=== PATIENT | female | born 2000 | race Caucasian/White ===

== ENCOUNTER 2023-09-04 20:22 | Emergency (ER) | payer BC, SELFPAY ==
[2023-09-04 20:36] VITALS: BP 111/72; PULSE 81; RESP 16; TEMP 37.2; O2SAT 98; BMI 23.0
--- NOTE | 2023-09-04 20:46 | ED_ITS ---
HPI - Abdominal Pain General Time Seen by Provider: 20:46 Date Seen: 09/04/23 Chief Complaint: Abdominal Pain Stated Complaint: vomiting/diarrhea/backpain/abd pain Time Seen by Provider: 09/04/23 20:43 Source: patient, EMS, RN notes reviewed and old records reviewed Mode of arrival: ambulatory Limitations: no limitations History of Present Illness HPI narrative: This 23-year-old female is coming in with illness starting last week. She started with nonbloody watery diarrhea Monday of last week, had accompanying nausea. Vomiting did not ensue until . She has had epigastric pain, some back pain with this. Her primary pain is epigastric area. She did have a fever initially, took Tylenol once and has not had any subsequent fever. She was on antibiotics a few weeks ago for UTI, improved. She is not aware of any ill contacts, is had no travel. She went to the clinic today, was given Zofran. She states she is still felt reflux of bile despite trying Zofran at 2:00 p.m.. There has been no blood in her vomit or her stool. She did take some Tylenol at about 5:30 p.m. for her discomfort. Labs done in clinic include a normal comprehensive metabolic panel was sodium 140, potassium 4.3, chloride 106, bicarb 24, IN gap 10, glucose 91, calcium 9.7, BUN 10, creatinine 0.62, estimated GFR greater than 90. White blood count was normal at 5800, hemoglobin normal at 12.9, platelet count [id number]. Urinalysis showed some concentration with a specific gravity greater than 1.030 but there is no evidence of infection or significant hematuria or pyuria, no bacteria seen. Her liver panel was normal. She had a negative urine test. She was told to stay on clear liquids, start brat diet tomorrow. If her symptoms were not improving, they were going to order CT imaging in a few days. Patient presented today as she was still having issues. She has been tolerating water today, had some broth tonight which made her feel more nauseated. Related Data Home Medications ?Medication ?Instructions ?Recorded ?Confirmed cyclobenzaprine 10 mg tablet 5 - 10 mg PO Q8H PRN muscle spasm 04/03/23 04/03/23 desogestrel-e.estradiol 0.15 1 tab PO DAILY 04/03/23 09/04/23 mg-0.02 mg(21)/e.estrad 0.01 mg(5) tablet (Volnea (28)) escitalopram oxalate 10 mg tablet 10 mg PO DAILY 04/03/23 09/04/23 hydroxyzine HCl 10 mg tablet 10 - 20 mg PO QPM PRN anxiety 04/03/23 09/04/23 mupirocin 2 % topical ointment topical BID 04/03/23 04/03/23 nystatin 100,000 unit/mL oral 5 ml PO QID 04/03/23 04/03/23 suspension valacyclovir 1 gram tablet 1,000 mg PO DAILY 04/03/23 04/03/23 Allergies Allergy/AdvReac Type Severity Reaction Status Date / Time guanfacine Allergy Verified 04/03/23 09:32 Review of Systems Status of ROS Reports: 6 or more systems reviewed and unremarkable except as noted in History and below PFSH PFS Social History Smoking Status: Never smoker Do you use any of these nicotine containing products: None Second hand tobacco smoke exposure: No How often do you have a drink containing alcohol: never How often do you have six or more drinks on one occasion: Never AUDIT-C Alcohol total score: 0 Non-prescribed substance use: denies use service: No Exam Const: Vital Signs, click to edit/add: Vital Signs - 24 hr 09/04/23 20:36 09/04/23 22:21 Temperature 99.0 F 97.4 F L Pulse Rate [Pulse Oximeter] 81 70 Respiratory Rate 16 16 Blood Pressure [Ri ght Upper Arm] 111/72 118/72 Pulse Oximetry 98 98 Oxygen Delivery Me thod Room Air Room Air Patient is alert, interactive, no apparent distress. Appears pale but no jaundice or rash noted, looks like she doesn't feel the best. Sclera clear, conjugate gaze. Lips normal not dry or cracked but oropharynx appears dry. It speak in complete sentences. Neck is supple, no adenopathy. Lungs are clear, good air entry, wheezing or crackles. CV regular rate and rhythm, no murmur, normal S1-S2, no S3-S4. Abdomen is soft, nondistended, mild epigastric tenderness without rebound or guarding, no organomegaly. Bowel sounds are present, no concerning character. No lower extremity edema. Patient is ambulatory into the ED of her own accord. Documenting provider has reviewed patient's vital signs: yes Course Course ED Course: Patient has been sick now for 5 days with GI symptomatology. Reviewed with her that this is likely infectious in nature, presumably viral with her normal labs today. She is feeling dry, will give her a L of IV fluids and 4 mg IV Zofran. We will also cover for gastritis type symptoms from her presumed GI gastroenteritis with 40 mg IV Protonix. Patient seems to be anticipating CT imaging, do think that she certainly could wait but given her duration of symptoms, will acquiesce in order CT abdomen pelvis with IV contrast. If colitis is seen on CT imaging, would do stool studies including C difficile given her recent antibiotic use. Will obtain a lactate, C-reactive protein and lipase but am not going to repeat her labs that were just done earlier today. Reevaluation(s) Time of Reevaluation #1: 22:48 Reevaluation #1: Reviewed CT imaging with patient. Her urinalysis in clinic earlier today does not suggest UTI. She is not symptomatic any longer. Otherwise, there is no acute pathology on her CT imaging. We reviewed her inflammatory markers and labs done here were normal. She very likely has a viral gastroenteritis. H opefully she is on the tail end of this and will start improve. Will plan to discharge to home with further clinic follow-up if she is not improving over the next few days. Of note, she did complain of a headache just prior to discharge. She was given Toradol 15 mg IV. Vital Signs Vital signs: Initial Vital Signs Temperature 99.0 F 09/04/23 20:36 Temperature Source Temporal Artery Scan 09/04/23 20:36 Pulse Rate 81 09/04/23 20:36 Respiratory Rate 16 09/04/23 20:36 Blood Pressure 111/72 09/04/23 20:36 Blood Pressure Mean 85 09/04/23 20:36 Blood Pressure Position Sitting 09/04/23 20:36 Pulse Oximetry 98 09/04/23 20:36 Oxygen Delivery Method Room Air 09/04/23 20:36 Vital Signs Temperature 99.0 F 09/04/23 20:36 Pulse Rate 81 09/04/23 20:36 Respiratory Rate 16 09/04/23 20:36 Blood Pressure 111/72 09/04/23 20:36 Pulse Oximetry 98 09/04/23 20:36 Oxygen Delivery Method Room Air 09/04/23 20:36 Temperature 97.4 F L 09/04/23 22:21 Pulse Rate 70 09/04/23 22:21 Respiratory Rate 16 09/04/23 22:21 Blood Pressure 118/72 09/04/23 22:21 Pulse Oximetry 98 09/04/23 22:21 Oxygen Delivery Method Room Air 09/04/23 22:21 Medications Administered Medications: Generic Name Dose Route Start Last Admin Trade Name Freq PRN Reason Stop Dose Admin Sodium Chloride 1,000 mls @ 1,000 mls/hr 09/04/23 20:48 09/04/23 22:13 0.9 % Sodium Chloride 1000 Ml IV 09/04/23 21:47 Infused .Q1H TIANNA Infusion Ondansetron HCl 4 mg 09/04/23 20:46 09/04/23 21:11 Ondansetron 2 Mg/Ml Inj IVP 09/04/23 20:47 4 mg ONCE ONE Administration Pantoprazole Sodium 40 mg 09/04/23 20:59 09/04/23 21:12 Pantoprazole Sodium 40 Mg Inj IVP 09/04/23 21:00 40 mg ONCE ONE Administration MDM - Abdominal Pain Lab Data Attestation: I reviewed the patient's lab results. Labs: Lab Results 09/04/23 Range/Units 21:11 Lactate 0.7 (0.5-1.9) mmol/L C-Reactive Protein 0.9 (0.5-1.0) mg/dL Lipase 119 (23-300) U/L Imaging Data CT scan - abdomen: Attestation: I have reviewed the pertinent imaging results. Radiologist's impression: Patient: ROLAND THOMAS Facility:?[facility] Patient ID:?[id number] Site Patient ID:?[id number]. Site :?[id number] Study:?CT-Abdomen/Pelvis W/ISOVUE 370 62CC-09/04/2023 9:51:40 PM Ordering Physician:Jack Landin Final Report: INDICATION: Abdominal pain, nausea/vomiting/diarrhea. TECHNIQUE: CT of the abdomen and pelvis acquired with 62 cc Isovue 370 IV contrast. Coronal and sagittal reconstructions. COMPARISON: None. FINDINGS: The liver, gallbladder, spleen, pancreas, and adrenal glands are negative. No biliary dilation. Hepatic and portal veins are patent. Symmetric enhancement of the kidneys. No hydronephrosis or ureteral dilation. No obstructing urinary calculi identified. Circumferential bladder wall thickening. Uterus is unremarkable. Nonspecific coarse calcification in the right adnexa. No small bowel dilation. Moderate amount of formed stool throughout the colon. No signs of bowel inflammation. Negative appendix. No intraperitoneal free air. No lymphadenopathy. Trace free fluid in the pelvis is likely physiologic. The lung bases are clear. The bones are unremarkable. IMPRESSION: 1. Bladder wall thickening. Correlate with urinalysis. 2. No other acute findings in the abdomen or pelvis. No signs of bowel inflammation or obstruction. Please note that all CT scans at this facility use dose modulation, iterative reconstruction, and/or weight-based dosing when appropriate to reduce radiation dose to as low as reasonably achievable. Dictated by Cat Muir MD @ 09/04/2023 10:46:21 PM (Electronic Signature) Discharge Plan Discharge Clinical Impression: Gastroenteritis Patient Disposition: Home, Self-Care Condition: Stable Instructions: Gastroenteritis (ED), Nutrition Tips for Relief of Diarrhea (ED) Additional Instructions: Continue with Zofran as needed for nausea and vomiting as it was prescribed earlier today. Drink small frequent sips of clear liquids, this will help prevent further nausea and vomiting. As you feel better, can advance her diet, review handout for nutrition tips for relief of diarrhea. If your symptoms are not improving in the next 2-3 days, recheck in clinic, may need to get stool studies done. If you develop increasing abdominal pain, fever, blood in your stool or vomit, do recommend re-evaluation in the ER. Activity Level: Activity as Tolerated Prescriptions: No Action escitalopram oxalate 10 mg tablet 10 mg PO DAILY nystatin 100,000 unit/mL suspension 5 ml PO QID desog-e.estradiol/e.estradiol [Volnea (28)] 0.15-0.02 mgx21 /0.01 mg x 5 tablet 1 tab PO DAILY mupirocin 2 % ointment topical BID hydroxyzine HCl 10 mg tablet 10 - 20 mg PO QPM PRN (Reason: anxiety) valacyclovir 1 gram tablet 1,000 mg PO DAILY cyclobenzaprine 10 mg tablet 5 - 10 mg PO Q8H PRN (Reason: muscle spasm) Follow Up/Referrals: Miller Mary MS, LAT, ATC [Primary Care Provider] - Stand Alone Forms: [employer] Info Instructions
--- NOTE | 2023-09-04 20:47 | CRLHL7_ITS ---
For Patients: As a result of the Century Cures Act, medical imaging exams and procedure reports are released immediately into your electronic medical record. You may view this report before your referring provider. If you have questions, please contact your health care provider. INDICATION: Abdominal pain, nausea/vomiting/diarrhea. TECHNIQUE: CT of the abdomen and pelvis acquired with 62 cc Isovue 370 IV contrast. Coronal and sagittal reconstructions. COMPARISON: None. FINDINGS: The liver, gallbladder, spleen, pancreas, and adrenal glands are negative. No biliary dilation. Hepatic and portal veins are patent. Symmetric enhancement of the kidneys. No hydronephrosis or ureteral dilation. No obstructing urinary calculi identified. Circumferential bladder wall thickening. Uterus is unremarkable. Nonspecific coarse calcification in the right adnexa. No small bowel dilation. Moderate amount of formed stool throughout the colon. No signs of bowel inflammation. Negative appendix. No intraperitoneal free air. No lymphadenopathy. Trace free fluid in the pelvis is likely physiologic. The lung bases are clear. The bones are unremarkable. IMPRESSION: 1. Bladder wall thickening. Correlate with urinalysis. 2. No other acute findings in the abdomen or pelvis. No signs of bowel inflammation or obstruction. Please note that all CT scans at this facility use dose modulation, iterative reconstruction, and/or weight-based dosing when appropriate to reduce radiation dose to as low as reasonably achievable. Dictated by Cat Muir MD @ 09/04/2023 10:46:21 PM (Electronically Signed)
[2023-09-04] MEDS: 0.9 % SODIUM CHLORIDE 1000 ml 1,000 ML IV (21:00)
[2023-09-04] MEDS: ONDANSETRON 2 MG/ML inj 4 MG IVP (21:11)
[2023-09-04] MEDS: PANTOPRAZOLE SODIUM 40 MG INJ IVP (21:12)
[2023-09-04 21:13] LABS: Lactate* 0.7 mmol/L (0.5-1.9)
[2023-09-04 21:44] LABS: Lipase* 119 U/L (23-300)
[2023-09-04 21:48] LABS: C Reactive Protein* 0.9 mg/dL (0.5-1.0)
[2023-09-04 22:21] VITALS: BP 118/72; PULSE 70; RESP 16; TEMP 36.3; O2SAT 98
--- NOTE | 2023-09-04 22:21 | PC.NURSE ---
Pt resting, c/o headache. GI symptoms have improved.
--- NOTE | 2023-09-04 22:52 | PC.NURSE ---
Pt put call light on, states she has a headache, rates it 9/10 and requesting medication for the headache.
[2023-09-04] MEDS: KETOROLAC 15 MG/ML inj IVP (22:59)
== END 2023-09-04 23:05 | disposition home or self-care (01) ==
PROVIDERS: Emergency Provider Family Medicine
DX: K52.9 Noninfective gastroenteritis and colitis, unspecified (principal)
CPT/HCPCS: 36415; 74177; 83605; 83690; 86140; 96374; 96375; 99284; C9113; J1885; J2405; J7030; Q9967

== ENCOUNTER 2024-10-22 21:23 | Emergency (ER) | payer BC, SELFPAY ==
--- OUTSIDE RECORDS SUMMARY | 2024-10-15 12:30 | XMS_ITS | Encounter Summary ---
Author Organization [facility] Address [address] [place] [address] Care Team Providers Care Vp Securities Name Role Phone None Reported, Pcp Primary Care Provider Unavail able Reason for Visit * Reason Comments Nurse Visit NOB ED/INTAKE * Appointment Request (Routine) - Closed Specialty Diagnoses / Procedures Referred By Britany bennett Referred To Contact Obstetrics and Gynecology Diagnoses Examination Test With Positive Result (HCC) Referral ID Status Reason Start Date Expiration Date Visits Re quested Visits Authorized [id number] Closed 09/30/2024 12/31/2025 1 1 Encounter Details Date Type Department Care Team (Late st Contact Info) Description 10/15/2024 12:30 PM CDT Initial Department of Obstetrics and Gynecology in [place], [place] [address] [phone] Jordyn López RRosa Elena [address] [phone] [place]: [id number] Discharge Disposition: Home or Self Care Social History Tobacco Use Types Packs/Day Years Used Date Smoking Tobacco: Former Cigarettes 0.3 3.3 0 03/20/2016 - 03/20/2019 Cigars Smokeless Tobacco: Never Alcohol Use Standard Drinks/Week Comments Not Currently 0 (1 standard drink = 0.6 oz pure alcohol) Socail drinker 1 here and there every few months [facility] Utilities Answer Date Recorded In the past 12 months has th e electric, gas, oil, or water Orderlord threatened to shut off services in your home? Yes 03/28/2024 Humiliation, Afraid, Rape, and Kick questionnair e Answer Date Recorded Within the last year, have y ou been afraid of your partner or ex-partner? No 09/12/2022 Within the last year, have y ou been humiliated or emotionally abused in other ways by your partner or ex-partner? No Within the last year, have y ou been kicked, hit, slapped, or otherwise physically hurt by your partner or ex-partner? No 09/12/2022 Within the last year, have y ou been raped or forced to have any kind of sexual activity by your partner or ex-partner? No 09/12/2022 Hunger Vital Sign Answer Date Recorded Within the past 12 months, y ou worried that your food would run out before you got the money to buy more. Sometimes true Within the past 12 months, t he food you bought just didn't last and you didn't have money to get more. Never true 11/2024 PRAPARE - Transportation Answer Date Re corded In the past 12 months, has l ack of transportation kept you from medical appointments or from getting medications? No 11/2024 In the past 12 months, has l ack of transportation kept you from meetings, work, or from getting things needed for daily living? No 03/28/2024 Depression Answer Date Recor ded PHQ-9 Total Score (max 27) 9 10/14 Housing Stability Answer Date Recorded What is your living situation today? I have a [facility] place to live 03/28/2024 Education Answer Date Recorded What is the highest level of school you have completed or the highest degree you have received? 12th grade 02/28/2019 Estimated Date of Delivery Comme nts Yes 06/03/2025 Based on last me nstrual period of 08/27/2024 (Exact Date) Sex and Gender Information Value Date Recorded Sex Assigned at Female 03/31/2023 3:20 PM CHILD SUPPORT INVESTIGATOR Legal Sex Female 8:08 AM CHILD SUPPORT INVESTIGATOR Gender Identity Female 03/31/2023 3:20 PM CHILD SUPPORT INVESTIGATOR Sexual Orientation Straight 03/31/2023 3: 20 PM CHILD SUPPORT INVESTIGATOR documented as of this encounter Progress Notes * Jordyn López R.N. - 10/15/2024 12:30 PM CDT SUBJECTIVE Consult conducted via real-time audio/video technology by Jordyn López R.N. in [facility] [place] to the patient in Patient's Home CHIEF COMPLAINT / REASON FOR VISIT Dionna Madera is a 24 y.o. . Patient's last menstrual period was 08/27/2024 (exact date). Her Estimated Date of Delivery: 06/03/25 determined by LMP. Gestational age is 7w0d. Relationship with FOB: significant other, living together. Patient plans to breastfeed. Had been seen previously for sharp abdominal discomfort. States that type of discomfort has resolved, continues with occasional menstrual like cramp discomfort. H/O anxiety/depression-stopped all meds in March, continues with weekly therapy. State doing well emotionally. HISTORY OF PRESENT CONDITION OB History Para Term AB Living 3 1 1 0 1 1 SAB IAB Ectopic Molar Multiple Live Births 0 1 0 0 1 # Outcome Date GA Lbr Mahendra/2nd Weight Sex Type Anes PTL Lv 3 Current 2 IAB 2022 IAB IAB 1 Term 07/19/20 39w5d 2.778 kg F Vag-Spont EPI N ZARA Comments: shock with nitrous oxide Obstetric Comments OB Stratification:Green Genetic Screen: reviewed [place] Score: PHQ-9:9 ERON-7:5 Medical History[1] Surgical History[2] Family History[3] Social History[4] Allergies Allergen Reactions Dextromethorphan-Guaifenesin Other (see comments) Fever and vomiting. Pseudoephedrine-Guaifenesin Other (see comments) Other reaction(s): Fever, Vomiting Medications the Patient Reported Taking vits62/FA/om3/dha/epa ( GUMMY ORAL) (Taking) OBJECTIVE VITAL SIGNS ASSESSMENT / PLAN The following were reviewed with patient: Initial new OB labs,anticipated course of care, optional labs, seat belt use, dental care, exercise, caffeine use, sexual activity, toxoplasmosis precautions(if indicated), avoidance of hot tubs/saunas, WIC/PHN US policy, safe over the counter medications, care cost estimate/insurance, common symptoms, mercury and listeria precautions, and , topics of when to notify care team(fever, excessive nausea/vomiting, pain, bleeding, urinary symptoms, headaches).Encouraged good communication with care team regarding emotinal status. Encourage to call with questions or concerns. Jordyn López R.N. 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 PELVIC LAPAROSCOPY 2011 THERAPEUTIC 03/26/22 TONSILLECTOMY 2005 [3] Family History Problem Relation Name Age of Onset Bleeding Disorder Mother Yamilex Endometriosis Mother Yamilex Hemochromatosis Mother Yamilex Migraines Mother Yamilex Asthma Father alejandra buus Endometriosis Maternal Grandmother Regla Clotting disorder Maternal Grandmother Regla Bleeding Disorder Maternal Grandmother Regla Alcohol abuse Maternal Grandfather I dont know his name Drug abuse Maternal Grandfather I dont know his name My mothers father raped my grandmother. My mom did a dna test and got in contact with his family. They all said he had a alcohol and drug problem. He in [facility]. ADD Paternal Grandmother Shannon Hypertension Paternal Grandfather gudelia balaji Coronary artery disease Paternal Grandfather gudelia balaji Sleep apnea Paternal Grandfather gudelia balaji Bleeding Disorder Paternal Grandfather gudelia balaji Breast cancer Maternal Great Grandmother Ovarian cancer Neg Hx [4] Social History Socioeconomic History Marital status: Number of children: 1 Highest education level: 12th grade Tobacco Use Smoking status: Former Current packs/day: 0.00 Average packs/day: 0.3 packs/day for 3.3 years (0.8 ttl pk-yrs) Types: Cigarettes, Cigars Start date: 03/20/2016 Quit date: 03/20/2019 Years since quittin.5 Smokeless tobacco: Never Vaping Use Vaping status: former use Substance and Sexual Activity Alcohol use: Not Currently Comment: Socail drinker 1 here and there every few months Drug use: Not Currently Types: Marijuana Comment: Since May havent smoked Sexual activity: Yes Partners: Male control/protection: None Social Drivers of Health Food Insecurity: Food Insecurity Present (03/28/2024) Hunger Vital Sign Worried About Running Out of Food in the Last Year: Sometimes true Ran Out of Food in the Last Year: Never true Transportation Needs: No Transportation Needs (03/28/2024) PRAPARE - Transportation Lack of Transportation (Medical): No Lack of Transportation (Non-Medical): No Intimate Partner Violence: Not At Risk (09/12/2022) Humiliation, Afraid, Rape, and Kick questionnaire Fear of Current or Ex-Partner: No Emotionally Abused: No Physically Abused: No Sexually Abused: No Housing Stability: Low Risk (03/28/2024) Housing Stability Housing: Living Situation: I have a steady place to live documented in this encounter Plan of Treatment Scheduled Orders Name Type Priority Associated Diagnoses Orde r Schedule Chlamydia / Gonorrhoeae Amplified RNA Microbiology Routine Encounter For Supervision Of Other Normal Unspecified Trimester (HCC) Expected: 10/25/2024, Expires: 01/23/2025 documented as of this encounter Visit Diagnoses Diagnosis Encounter For Supervision Of Other Normal Unspecified Trimester (HCC)- Primary documented in this encounter Additional Health Concerns Assessment Noted Time PHQ-9 Depression Total Score: 9 10/15/19 10:01 AM CDT documented as of this encounter Care Teams Vp Securities Relationship Specialty Start Date End Date None Reported, Pcp PCP - General Family Medicine 08/08/24 documented as of this encounter
--- OUTSIDE RECORDS SUMMARY | 2024-10-22 21:26 | XMS_ITS | Clinical Summary ---
Author Organization [facility] Address [address] [place] [address] Care Team Providers Care Infantry Indirect Fire Crewmember Name Role Phone None Reported, Pcp Primary Care Provider Unavail able Source Comments Patient records contain information from all sites at [facility]. For routine questions regarding patient records, call [phone] during business hours, M-F 8:00 AM - 5:00 PM Central Time. Record requests for emergency care only can be directed to [phone] at any time.[facility] Allergies Active Allergy Reactions Criticality Noted Date Comments Dextromethorphan-Gua ifenesin Other (see comments) Low 04/10/2012 Fever and vomiting. Pseudoephedrine-Guai fenesin Other (see comments) Low 03/28/2013 Other reaction(s): Fever, Vomiting Medications * This document contains information received from the source organization and may not represent a complete record from that organization. escitalopram (LEXAPRO) 10 mg tablet 1 tablet (10mg) by mouth once daily at bedtime. Appointment needed for additional refills. 4 Active hydrOXYzine (ATARAX) 10 mg tablet Take 10-20 mg by mouth at bedtime as needed. 4 Active albuterol 90 mcg/actuation inhaler Inhale 2 puffs every 4 (four) hours as needed. 4 Active amitriptyline (ElaviL) 10 mg tablet Take 1 tablet by mouth at bedtime. 4 Active benzonatate (Tessalon Perles) 100 mg capsule Take 100 mg by mouth 3 (three) times a day as needed for cough. Active mupirocin (Bactroban) 2 % ointment as needed. 4 Active escitalopram (Lexapro) 5 mg tablet Take 5 mg by mouth daily. 4 Active beclomethasone (Qvar RediHaler) 80 mcg/actuation inhaler Inhale 1 puff 2 (two) times a day. Rinse mouth with water after use to reduce aftertaste and incidence of candidiasis. Do not swallow. 10.6 g 11 5 Active Additional Information Patient not taking.Reported on 10/15/2024 desogestreL-ethin yl estradioL (Enskyce) 0.15-0.03 mg per tabletIndications :Endometriosis,Ma nagement Contraceptive Take 1 tablet by mouth once daily 84 tablet 4 5 Active Additional Information Patient not taking.Reported on 10/15/2024 SUMAtriptan (Imitrex) 100 mg tablet Take 100 mg by mouth as needed. Active valACYclovir (Valtrex) 500 mg tablet Take 500 mg by mouth 2 (two) times a day. Active valACYclovir (Valtrex) 1000 mg tablet Take 1,000 mg by mouth as needed. Active valACYclovir (Valtrex) 500 mg tabletIndications :Herpesviral Infection Unspecified Take 1 tablet (500 mg total) by mouth daily. 90 tablet 3 5 026 Active Additional Information Patient not taking.Reported on 10/15/2024 vits62/FA/om3/dha /epa ( GUMMY ORAL) Take 2 gummies by mouth daily. Active Active Problems Problem Noted Date Diagnosed Date Lesion Skin 04/29/2024 Depression Major Recurrent Moderate 09/29/2023 Anxiety Generalized Disorder 10/26/2022 Management Contraceptive 08/12/2022 Overview (04/07/2023): Experiencing breakthrough bleeding with her current control pill. We will adjust her pill and increase the estrogen content. She will continue to allow a withdrawal bleed. She should follow up in 3-4 months if abnormal bleeding has not corrected. 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 Continue to follow-up with ultrasound during . Endometriosis 07/26/2012 Overview (04/07/2023): Utilizing the control pill for management. Asthma Mild Intermittent 05/14/2010 Estimated Date of Delivery Comme nts Yes 06/03/2025 Based on last me nstrual period of 08/27/2024 (Exact Date) Resolved Problems Problem Noted Date Diagnosed Date Resolved Date Hyperemesis Gravidarum Mild 05/12/2020 04/07/2023 Asthma 01/06/2020 08/12/2022 Examination Normal First Second Trimester 01/06/2020 08/12/2022 Need Vaccine Immunization Varicella 12/31/2019 08/12/2022 Overview (12/31/2019): Personal History Of Infectio us And Parasitic Disease (COVID-19) 12/04/2019 08/12/2022 Endometriosis Personal History 04/01/2019 08/12/2022 Other Symptoms And Signs Inv olving The Musculoskeletal System 06/29/2014 08/12/2022 Raised Antibody Titer 05/30/20142022 Overview (04/27/2020): No related clinical signs/symptoms of rheumatologic disease Pain Knee Right 04/09/2014 08/12/2022 Myalgia 04/09/2014 08/12/2022 Encounter Initial Therapy Im plantable Subdermal Contraceptive 07/26/2012 08/12/2022 Overview (04/27/2020): Remove in 3 years from insertion Dysmenorrhea 05/14/2010 08/12/2022 Myopia Right 12/27/2007 08/12/2022 Encounters Date Type Department Care Team Description 10/15/2024 12:30 PM CDT Initial Department of Obstetrics and Gynecology in [place], [place] [address] [place] [address] Jordyn López R.N. GA: [id number] Discharge Disposition: Home or Self Care 09/16/2024 Refill Department of Obstetrics and Gynecology in [place], [place] [address] [place] [address] Reshma Puente APRN, C.N.P. Med Refill from Last 3 Months Immunizations Immunization Administration Dates Next Due 9vHPV 11/24/2016,09/14/2015,07/13/2015 DTaP (Infanrix, Tripedia) 2000,2000, 2000 DTaP / Hep B / IPV (Pediarix) 10/17/2005 HPV, Unspecified 09/14/2015,07/13/2015 Hib-HepB 2000,2000 IPV 2000,2000,2000 Influenza, Unspecified 02/04/2020(Deferred: Angie ent decision) MCV4 (Menactra)(Discontinued) 02/20/2018, 013 MCV4 (Menveo) 11/12/2012 MMR 12/21/2005,10/17/2005 PCV7 (discontinued) 2000,2000,2000 Tdap 03/29/2024,11/12/2012 SHAYLA 11/12/2012,10/17/2005 Family History Medical History Relation Name Comments Asthma Father alejandra madera Alcohol abuse Maternal Grandfather I dont know his name Drug abuse Maternal Grandfather I dont know his name My mothers father raped my grandmother. My mom did a dna test and got in contact with his family. They all said he had a alcohol and drug problem. He in assisted. Bleeding Disorder Maternal Grandmother Regla Clotting disorder Maternal Grandmother Regla Endometriosis Maternal Grandmother Regla Breast cancer Maternal Great Grandmother Bleeding Disorder Mother Yamilex Endometriosis Mother Yamilex Hemochromatosis Mother Yamilex Migraines Mother Yamilex Bleeding Disorder Paternal Grandfather gudelia balaji Coronary artery disease Paternal Grandfather gudelia jerrica baig Hypertension Paternal Grandfather gudelia balaji Sleep apnea Paternal Grandfather gudelia balaji ADD Paternal Grandmother Shannon Ovarian cancer Neg Hx Relation Name Status Comments Father alejandra madera Maternal Grandfather I dont know his name Alive Maternal Grandmother Regla Alive Maternal Great Grandmother Mother Yamilex Alive Paternal Grandfather gudelia madera Paternal Grandmother Shannon Alive Social History Tobacco Use Types Packs/Day Years Used Date Smoking Tobacco: Former Cigarettes 0.3 3.3 0 03/20/2016 - 03/20/2019 Cigars Smokeless Tobacco: Never Alcohol Use Standard Drinks/Week Comments Not Currently 0 (1 standard drink = 0.6 oz pure alcohol) Socail drinker 1 here and there every few months [facility] Utilities Answer Date Recorded In the past 12 months has e [employer], gas, oil, or water Deliv threatened to shut off services in your [...] your living situation today? I [place] a [facility] place to live 03/28/2024 Education Answer Date Recorded What is the highest level of school you have completed or the highest degree you have received? 12th grade 02/28/2019 Estimated Date of Delivery Comme nts Yes 06/03/2025 Based on last me nstrual period of 08/27/2024 (Exact Date) Sex and Gender Information Value Date Recorded Sex Assigned at Female 03/31/2023 3:20 PM BRIM MOLDER Legal Sex Female 8:08 AM BRIM MOLDER Gender Identity Female 03/31/2023 3:20 PM BRIM MOLDER Sexual Orientation Straight 03/31/2023 3: 20 PM BRIM MOLDER Last Filed Vital Signs Vital Sign Reading Time Taken Comments Blood Pressure 101/65 03/29/2024 9:24 AM BRIM MOLDER average of 3 Pulse 79 03/29/2024 9:24 AM BRIM MOLDER Temperature 36 C (96.8 F) 03/29/2024 9:24 AM BRIM MOLDER Respiratory Rate 12 03/29/2024 9:24 AM BRIM MOLDER Oxygen Saturation 99% 12/06/2019 10: 00 AM CDT Inhaled Oxygen Concentration - - Weight 56.9 kg (125 lb 7.1 oz) 03/29/19 25 9:24 AM BRIM MOLDER Height 156 cm (5' 1.42) 03/29/2024 9:2 4 AM BRIM MOLDER Body Mass Index 23.38 03/29/2024 9:24 AM BRIM MOLDER Plan of Treatment Health Maintenance Due Date Last Done Comments Hepatitis C Screening 2000 Pneumococcal vaccine (0-49 y ears) (1 of 2 - PCV) 01/18/2019 2000, 2000, 2000 COVID-19 Vaccine ( - 2023-2 5 season) 2023 Chlamydia and Gonorrhea Screening 04/18/2024 024, 12/30/2019 Asthma Control Test Questionnaire 05/09/2024 025 Asthma Management/Exacerbati on Questionnaire (AMQ/AEQ) 05/29/2024 05/30/2023 Influenza Vaccine (#1) 2024 Depression Monitoring (PHQ-9) 02/14/2025 10/14/2024 Tdap vaccine - (27- 36 weeks) (1 - Tdap) 03/04/2025 03/29/2024, 11/12/2012, 2000, Additional history exists Asthma Action Plan 03/29/2025 03/29/2024 RSV vaccine - (32-3 6 weeks) or 60+ years (1 - Risk 1-dose series) 04/08/2025 Cervical/Vaginal Cancer Screening 06/29/2025 06/29/2022 (Performed elsewhere) DTaP,Tdap,and Td Vaccines (7 - Td or Tdap) 03/29/2034 03/29/2024, 11/12/2012, 10/17/2005, Additional history exists Hepatitis B Vaccines Completed 10/17/2005, 2000, 2000 IPV Vaccines Completed 10/17/2005, 09/18, 2000, Additional history exists Varicella Vaccines Completed 11/12/2012, 10/17/2005 HPV Vaccines Completed 11/24/2016, 08/19, 09/14/2015, Additional history exists HIV Screening Completed 12/30/2019 Depression Monitoring (PHQ-9 for quality tracking) Completed 10/14/2024, 03/29/2024 Procedures Procedure Name Priority Date/Time Associated Diagnosis Comments CHLAMYDIA/GONORRHOE AE AMPLIFIED RNA Routine 04/18/2023 8:53 AM BRIM MOLDER Screening For Venereal Disease HIV-1/-2 AG AND AB SCRN, PLASMA Routine 12/30/2019 4:37 PM CDT Encounter For Supervision Of Normal First Unspecified Trimester from Last 3 Months or Most Recently Relevant to Health Maintenance Results * Chlamydia / Gonorrhoeae Amplified RNA (04/18/2023 8:53 AM BRIM MOLDER) Source Swab, Vagina 04/18/2023 11:16 PM BRIM MOLDER MKTO Chlamydia trachomatis amplified RNA Negative Negative 04/18/2023 11:16 PM BRIM MOLDER MKTO Source Swab, Vagina 04/18/2023 11:16 PM BRIM MOLDER MKTO Neisseria gonorrhoeae amplified RNA Negative Negative 04/18/2023 11:16 PM BRIM MOLDER MKTO Swab (Vagina) 04/18/2023 8:5 3 AM BRIM MOLDER 04/18/2023 7:13 PM BRIM MOLDER us Reshma Puente APRN, C.N.P. LAB MICROBIOLOGY - GENERAL ORDERABLES Final Result [facility] [address] [place] [address], [place] [facility]TO [address] [facility] [address] [place] [address] * HIV-1/-2 Ag and Ab Scrn, Plasma (12/30/2019 4:37 PM CDT) HIV Ag/Ab Scrn, P Negative Negative 12/31/2019 2:42 PM CDT [facility] Comment: Negative result does not rule out HIV infection. If exposure to HIV infection occurred <14 days ago, contact the laboratory to request addition of HIV-1 RNA detection / quantification test. HIV-1 p24 Ag Scrn, P Negative Negative 12/31/2019 2:42 PM CDT [facility] Comment: Negative result does not rule out HIV infection. If exposure to HIV infection occurred <14 days ago, contact the laboratory to request addition of HIV-1 RNA detection / quantification test. HIV-1 Ab Scrn, P Negative Negative 12/31/2019 2:42 PM CDT [facility] Comment: Negative result does not rule out HIV infection. If exposure to HIV infection occurred <14 days ago, contact the laboratory to request addition of HIV-1 RNA detection / quantification test. HIV-2 Ab Scrn, P Negative Negative 12/31/2019 2:42 PM CDT [facility] Comment: Negative result does not rule out HIV infection. If exposure to HIV infection occurred <14 days ago, contact the laboratory to request addition of HIV-1 RNA detection / quantification test. Blood (Blood, Venous) 12/30/2019 4:37 PM CDT 12/30/2019 6:44 PM CDT us Siddharth Kelly M.D. LAB MICROBIOLOGY - BLOOD ORDE VIOLETTE Final Result [facility] [address] [place] [address], [place] [facility] [place] [address] [place] [address] from Last 3 Months or Most Recently Relevant to Health Maintenance Insurance [address] [place] [address] [facility] Care Teams Infantry Indirect Fire Crewmember Relationship Specialty Start Date End Date None Reported, Pcp PCP - General Family Medicine 08/08/24
--- OUTSIDE RECORDS SUMMARY | 2024-10-22 21:26 | XMS_ITS | Clinical Summary ---
Author Organization [facility] Address [address] [place] [id number] Care Team Providers Care Technology Administrator Name Role Phone Mariaelena Cordova MD Unavailable Carrillo Grimm MD Unavailable Cristo Mckenzie MD Unavailable Elenita Fierro MD Unavailable Elenita Fierro MD Unavailable Cristo Mckenzie MD Unavailable Allergies Active Allergy Reactions Criticality Noted Date Comments Dm-Guaifenesin Er Other (See Comments) 04/10/19 13 Fever and vomiting. Medications loratadine (CLARITIN) 10 MG tabletIndication s:Mild persistent asthma Take 1 tablet by mouth daily as needed. 30 tablet 11 08/01/19 13 Active albuterol (PROAIR HFA, PROVENTIL HFA, VENTOLIN HFA) 108 (90 BASE) MCG/ACT inhalerIndicatio ns:Mild persistent asthma Inhale 2 puffs into the lungs every 6 hours. 1 Inhaler 2 08/01/19 13 Active Additional Information Patient taking differently:2 puff InhalationEVERY 6 HOURS PRN, Reported on 09/18/2013 albuterol (2.5 MG/3ML) 0.083% nebulizer solutionIndicati ons:Mild persistent asthma Take 3 mLs by nebulization every 6 hours as needed for shortness of breath / dyspnea. 60 mL 5 08/01/19 13 Active Levonorgestrel, [id number], (Retora Black SYSTEM AZ) by IMPLANT route. Ac tive ondansetron (ZOFRAN) 4 MG tabletIndication s:Nausea Take 1 tablet (4 mg) by mouth every 8 hours as needed for nausea 12 tablet 0 07/17/19 14 Active montelukast (SINGULAIR) 10 MG tabletIndication s:Persistent asthma Take 1 tablet (10 mg) by mouth At Bedtime 30 tablet 5 12/07/19 14 Active hydrocortisone 1 % cream Apply sparingly to affected area three times daily for 14 days. 45 g 0 04/08/19 15 Active ibuprofen (ADVIL/MOTRIN) 200 MG tabletIndication s:Pain in both lower legs Take 2 tablets (400 mg) by mouth every 8 hours as needed for pain or moderate pain 75 tablet 1 11/25/19 17 Active norethindrone-et hinyl estradiol (MICROGESTIN .08/16) 1.5-30 MG-MCG tabletIndication s:Menorrhagia with irregular cycle Take 1 tablet by mouth daily 28 tablet 02/21/20 18 Active Additional Information Patient not taking.Reported on 07/17/2018 metroNIDAZOLE (FLAGYL) 500 MG tabletIndication s:BV (bacterial vaginosis) Take 1 tablet (500 mg) by mouth 2 times daily 14 tablet 02/21/20 18 Active Additional Information Patient not taking.Reported on 07/17/2018 Vit-Fe Fumarate-FA ( MULTIVITAMIN W/IRON) 27-0.8 MG tablet Take 1 tablet by mouth daily Active Active Problems Problem Noted Date Diagnosed Date Encounter for triage in patient 021 Pain in joint involving lower leg 06/29/2014 Leg weakness, bilateral 06/29/2014 Positive SS-A antibody with negative KAYLYN 015 Overview (05/30/2014): No related clinical signs/symptoms of rheumatologic disease Muscle pain 04/09/2014 Pain in joint, lower leg 04/09/2014 Fracture of 5th metatarsal 08/31/2013 Endometriosis 07/26/2012 Overview (07/26/2012): nexplanon Nexplanon insertion 07/26/2012 Overview (07/26/2012): Remove in 3 years from insertion Ankle pain 02/02/2012 Dysmenorrhea 05/14/2010 Intermittent asthma 05/14/2010 Allergic state 06/10/2009 Overview (12/19/2011): (Problem list name updated by automated process. Provider to review and confirm.) UTI (urinary tract infection) 04/18/2008 Resolved Problems Problem Noted Date Diagnosed Date Resolved Date Dog bite of arm 09/19/2013 04/09/2014 Mild persistent asthma 08/25/200505/14 Immunizations Immunization Administration Dates Next Due Comvax (HIB/HepB) 2000,2000 DTAP (<7y) 2000,2000,2000 DTaP/HepB/IPV 10/17/2005 HPV 09/14/2015,07/13/2015 HPV9 (Gardasil) 11/24/2016 MMR (MMRII) 12/21/2005,10/17/2005 Meningococcal ACWY (Menactra ) 02/20/2018,11/12/2012 Pneumococcal (PCV 7) 2000,2000,04/06 Poliovirus, inactivated (IPV) 2000, 001,2000 TDAP Vaccine (Adacel) 11/12/2012 Varicella (Varivax) 11/12/2012,10/17/2005 Family History Medical History Relation Comments Allergies Father seasonal Respiratory Father asthma Allergies Maternal Aunt seasonal Gastrointestinal Disease Maternal Grandfather Ce liac disease Respiratory Maternal Grandfather Emphazyma a nd asthma Heart Disease Maternal Grandmother Angina Rheumatoid Arthritis Maternal Grandmother Also m aternal great grandmother Sjogren's Maternal Grandmother Allergies Mother seasonal Blood Disease Mother Anemia Other - See Comments Mother ? fibromyal elpidio, anxiety, and gluten intolerance Psoriasis Mother Respiratory Mother asthma Neurologic Disorder Other 1 Paternal gre at grandfather and 2nd cousin with hereditary spastic paraplegia Other - See Comments Other 2 Multiple ex tended maternal family members with tendonitis (plantar fasciitis) and bone spurs Hypertension Paternal Grandfather Relation Status Comments Brother Alive Father Alive Maternal Aunt Maternal Grandfather Alive Maternal Grandmother Alive Mother Alive Other 1 Other 2 Paternal Grandfather Alive Social History Tobacco Use Types Packs/Day Years Used Date Smoking Tobacco: Former Cigarettes Q uit: 03/06/2018 Smokeless Tobacco: Never Alcohol Use Standard Drinks/Week Comments No 0 (1 standard drink = 0.6 oz pur e alcohol) PHQ-2 Answer Date Recorded PHQ-2 Score 0 05/10/2018 Adolescent Education Answer Date Record ed Getting School Help Needed Not on file 12/10 Comments No Sex and Gender Information Value Date Recorded Sex Assigned at Not on file Legal Sex Female 4:13 AM FLIGHT RESERVATIONS MANAGER Gender Identity Not on file Sexual Orientation Not on file Last Filed Vital Signs Vital Sign Reading Time Taken Comments Blood Pressure 117/63 05/14/2020 12:10 AM FLIGHT RESERVATIONS MANAGER Pulse 86 09/08/2018 1:53 PM CDT Temperature 36.8 C (98.3 F) 05/14/2020 12:10 AM FLIGHT RESERVATIONS MANAGER Respiratory Rate 16 05/14/2020 12:10 AM FLIGHT RESERVATIONS MANAGER Oxygen Saturation 99% 09/08/2018 1:53 PM CDT Inhaled Oxygen Concentration - - Weight 49.4 kg (109 lb) 09/08/2018 1:53 PM CDT Height 157.5 cm (5' 2) 07/17/2018 10:02 AM CDT Body Mass Index 19.94 07/17/2018 10:02 AM CDT Plan of Treatment Not on file Insurance MEDICAID [place] Care Teams Technology Administrator Relationship Specialty Start Date End Date Mariaelena Cordova MD [address] [place] [id number] Resident Pediatrics 05/28/14 Carrillo Grimm MD [facility] [address] [place] [address] Orthopedics 05/28/14 Cristo Mckenzie MD [facility] [address] [place] [address] Consulting Physician 05/28/14 Elenita Fierro MD [address] [address] Pediatric Rheumatology 05/28/14 Elenita Fierro MD [address] [address] Pediatric Rheumatology 06/03/14 Cristo Mckenzie MD [facility] [address] [place] [address] 06/03/14
--- OUTSIDE RECORDS SUMMARY | 2024-10-22 21:26 | XMS_ITS | Encounter Summary ---
Author Organization [facility] Address [address] [place] [address] Care Team Providers Care Chain Person Name Role Phone None Reported, Pcp Primary Care Provider Unavail able Reason for Visit * Reason Onset Date Comments Med Refill 09/13/2024 Encounter Details Date Type Department Care Team (Late st Contact Info) Description 09/16/2024 Refill Department of Obstetrics and Gynecology in [place], [place] [address] [address] Reshma Puente, GREENHOUSE WORKER, C.N.P. [address] [address] Med Refill Social History Tobacco Use Types Packs/Day Years Used Date Smoking Tobacco: Former Cigarettes 0.3 3 0 03/20/2016 - 03/20/2019 Cigars Smokeless Tobacco: Never Alcohol Use Standard Drinks/Week Comments Yes 0 (1 standard drink = 0.6 oz pure alcohol) Socail drinker 1 here and there every few months [facility] Utilities Answer Date Recorded In the past 12 months has [facility] electric, gas, oil, or water company threatened to shut off services in your [...] your living situation today? [facility] live 03/28/2024 Education Answer Date Recorded What is the highest level of school you have completed or the highest degree you have received? 12th grade 02/28/2019 Comments No Sex and Gender Information Value Date Recorded Sex Assigned at Female 03/31/2023 3:20 PM ACCOUNTS PAYABLE COORDINATOR Legal Sex Female 8:08 AM ACCOUNTS PAYABLE COORDINATOR Gender Identity Female 03/31/2023 3:20 PM ACCOUNTS PAYABLE COORDINATOR Sexual Orientation Straight 03/31/2023 3: 20 PM ACCOUNTS PAYABLE COORDINATOR documented as of this encounter Plan of Treatment Not on file documented as of this encounter Visit Diagnoses Diagnosis Herpesviral Infection Unspecified documented in this encounter Additional Health Concerns Assessment Noted Time PHQ-9 Depression Total Score: 10 021 2:20 PM ACCOUNTS PAYABLE COORDINATOR documented as of this encounter Care Teams Chain Person Relationship Specialty Start Date End Date None Reported, Pcp PCP - General Family Medicine 08/08/24 documented as of this encounter
--- OUTSIDE RECORDS SUMMARY | 2024-10-22 21:26 | XMS_ITS | Clinical Summary ---
Author Organization [email or web address] Address [address] [place] [id number] Care Team Providers Care City Recorder Name Role Phone None Primary Care Provider Unavailabl e Allergies Active Allergy Reactions Criticality Noted Date Comments Dextromethorphan-Guai fenesin Other - Describe In Comment Field,Dizziness Low 04/10/2012 Fever and vomiting. Fever and vomiting. Pseudoephedrine-Guaif enesin Fever,Vomiting 03/28/2013 Unlisted Allergen (Include Detail In Comments) Other - Describe In Comment Field 04/10/2012 Guaifenesin- Fever and vomiting. Medications ibuprofen (IBUPROFEN IB) 200 mg tablet Take 1 tablet by mouth 4 times daily if needed. PRN 0 2 Active valACYclovir (Valtrex) 500 mg tabletIndications: Herpes simplex type 2 infection Take 1 Tablet (500 mg) by mouth once daily. 90 Tablet 4 3 Active albuterol HFA (PRO-AIR; VENTOLIN; PROVENTIL) 90 mcg/actuation inhalerIndications :Chest pain, unspecified type Inhale 2 Puffs by mouth every 4 hours if needed for Shortness of Breath 1st choice. 1 Each 4 Active ondansetron (ZOFRAN ODT) 4 mg disintegrating tabletIndications: Nausea,Acute diarrhea Place 1 Tablet (4 mg) on the tongue every 8 hours if needed for Nausea/Vomiti ng. 20 Tablet 4 Active albuterol HFA (PRO-AIR; VENTOLIN; PROVENTIL) 90 mcg/actuation inhalerIndications :Cough, unspecified type Inhale 1-2 Puffs by mouth every 4 hours if needed for Shortness Of Breath or Wheezing. 1 Each 4 Active amitriptyline 10 mg tabletIndications: Migraine without aura and without status migrainosus, not intractable Take 2 Tablets (20 mg) by mouth at bedtime. 180 Tablet 3 5 04/05/19 26 Active hydrOXYzine HCL (ATARAX) 10 mg tabletIndications: ERON (generalized anxiety disorder) Take 1 Tablet (10 mg) by mouth 3 times daily if needed for Anxiety (sleep). 60 Tablet 2 5 Active ondansetron (ZOFRAN ODT) 4 mg disintegrating tabletIndications: Abdominal pain, unspecified abdominal location Place 1 Tablet (4 mg) on the tongue every 8 hours if needed for Nausea/Vomiti ng. 12 Tablet 5 Active Active Problems Problem Noted Date Diagnosed Date Mild intermittent asthma without complication Recurrent major depressive disorder, in full rem ission 09/29/2023 ERON (generalized anxiety disorder) 10/26/2022 HSV-2 (herpes simplex virus 2) infection 023 Pap smear for cervical cancer screening 06/19/19 23 Overview (07/25/2022): 06/2022 NIL Plan: Pap/HPV due in 3 years Myopia 12/27/2007 Comments Yes Resolved Problems Problem Noted Date Diagnosed Date Resolved Date Mild episode of recurrent ma thom depressive disorder 10/26/2022 08/29/2024 Encounters Date Type Department Care Team Description 10/04/2024 4:32 PM CDT - 10/04/2024 11:59 PM CDT Hospital Encounter [facility] [address] [facility] [place] [address] Abdominal pain affecting (HC) 10/04/2024 Travel 10/03/2024 Telephone [facility] [address] [facility] [place] [phone] Devorah Acostaesa, DO Appointment Request (STAT // REFERRAL) 10/02/2024 7:06 PM CDT - 10/02/2024 10:29 PM CDT Emergency [facility] [address] [place] [address] Abdirahman Valverde PA Abdominal pain affecting (HC) (Primary Dx) Discharge Disposition: Home Self Care 10/02/2024 Travel 08/29/2024 12:45 PM CDT Telemedicine [facility] [address] [place] [address] Carlyn Villafuerte NP Follow Up; Telehealth; Medication Management 08/29/2024 Travel 07/24/2024 5:25 PM CDT Telemedicine [facility] [address] [place] [phone] Bebe Nayak NP Sinus Problem; Ear Problem; Telehealth (Virtual visit, no vitals taken ) 07/24/2024 Travel 07/23/2024 Travel from Last 3 Months Immunizations Immunization Administration Dates Next Due DTaP 2000,2000,2000 [id number] (Pediarix) 10/17/2005 HIB-HepB (Comvax) 2000,2000 HPV 9 (Gardasil 9) 11/24/2016,09/14/2015, 016 Human Papilloma Virus Vaccine, Unspecified 09/13,07/13/2015 Inactivated Polio Vaccine 2000,2000, 2000 MENINGOCOCCAL VACCINE 2 VIAL [id number] (MENVEO) 11/12/2012 MMR 12/21/2005,10/17/2005 Meningococcal Vaccine (Menactra) 02/20/2018,10/19 Pneumococcal conj 7-Valent (Prevnar 7) 1,2000,2000 Tdap 11/12/2012 Varicella Vaccine 11/12/2012,10/17/2005 Family History Medical History Relation Name Comments Good Health Father Hypotension Maternal Grandmother Sjogren's syndrome Maternal Grandmother Lupus Mother Sjogren's syndrome Mother Heart attack Paternal Grandfather Hypertension Paternal Grandfather Relation Name Status Comments Father Maternal Grandmother Mother Other Paternal Grandfather Social History Tobacco Use Types Packs/Day Years Used Date Smoking Tobacco: Some Days Cigarettes 0.3 0.9 Started: 12/15/2023 Passive Smoke Exposure: Yes Smokeless Tobacco: Never Tobacco Cessation:Ready to Q uit: Yes; Counseling Given: Yes Comments:stress smoking Alcohol Use Standard Drinks/Week Comments Yes 0 (1 standard drink = 0.6 oz pur e alcohol) Rarely - 6 drinks a year PHQ-2 Answer Date Recorded PHQ-2 TOTAL SCORE 2 08/29/2024 Social Connections Answer Date Recorded Do you often feel lonely or isolated from those around you? 0 09/07/2023 Financial Resource Strain Answer Date R ecorded Difficulty of Paying Living Expenses 3 07/28/2023 Difficulty of Paying Living Expenses Not on file 07/28/2023 Food Insecurity Answer Date Recorded Do you worry your food will run out before you are able to buy more? 1 09/07/2023 Transportation Needs Answer Date Record ed Does lack of transportation keep you from medica l appointments? 1 09/07/2023 Does lack of transportation keep you from work, meetings or getting things that you need? 1 09/07/2023 Housing Stability Answer Date Recorded What is your housing situation today? 1 09/07/2023 Interpersonal Safety Answer Date Record ed Are you being hit, kicked, p ushed or yelled at (see row info)? No 10/02/2024 Interpersonal Safety Abuse 12 - 18 Not on file 10/02/2024 Interpersonal Safety Ambulatory Vulnerability No t on file 10/02/2024 Utilities Answer Date Recorded Do you have trouble paying f or utilities (for example, heat, electricity, water, phone)? 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 Last Filed Vital Signs Vital Sign Reading Time Taken Comments Blood Pressure 114/61 10/02/2024 10:28 PM CDT Pulse 87 10/02/2024 10:28 PM CDT Temperature 37 C (98.6 F) 10/02/2024 7:11 PM CDT Respiratory Rate 14 10/02/2024 7:11 PM CDT Oxygen Saturation 99% 10/02/2024 10:28 PM CDT Inhaled Oxygen Concentration - - Weight 57.3 kg (126 lb 4.8 oz) 10/02/2024 7:17 P M CDT Height 157.5 cm (5' 2) 10/02/2024 7:17 PM CDT Body Mass Index 23.1 10/02/2024 7:17 PM CDT Plan of Treatment Upcoming Encounters Date Type Department Care Team (Late st Contact Info) Description 12/05/2024 10:15 AM CDT Telemedicine [facility] [address] [place] [address] Carlyn Villafuerte NP [address] [place] [address] Health Maintenance Due Date Last Done Comments HIV for age 15-65 01/18/2015 Hepatitis C screening for ag e 18-79 01/18/2018 Pneumococcal series for age 6-49 (1 of 2 - PCV) 01/18/2019 2000, 2000, 2000 Tetanus booster 11/12/2022 11/12/2012 Chlamydia for age 16-24 06/30/2023 06/30/19, 02/20/2018 (Verified in Care Everywhere or Patient Record) COVID-19 vaccine series ( - 2023- season) 2023 Influenza Vaccine (#1) 2024 BMI (ht and wt on same day) for age 18+ 03/01/2025 03/01/2024, 09/04/2023, 01/09/2023, Additional history exists Pap test for age 21-65 06/29/2025 06/29/2022 Depression screening for age 12+ 08/29/2025 08/29/2024, 05/03/2024, 03/20/2024, Additional history exists RSV vaccine for adults or (1 - 1-dose 75+ series) 01/18/2075 Hepatitis B series for 19+ Completed 10/17, 2000, 2000 HPV series for age 9-26 Completed 11/25/19 17, 09/14/2015, 09/14/2015, Additional history exists Procedures Procedure Name Priority Date/Time Associated Diagnosis Comments HCG BETA QUANT, Today 10/04/2024 4:40 PM CDT Abdominal pain affecting (HC) US OB 1ST TRI SINGLE TA AND TV STAT 10/02/2024 9:38 PM CDT HCG BETA QUANT, STAT 10/02/2024 8:10 PM CDT CBC WITH AUTO DIFFERENTIAL STAT 10/02/2024 7:33 PM CDT CBC WITH AUTO DIFFERENTIAL STAT 10/02/2024 7:33 PM CDT BASIC METABOLIC PANEL STAT 10/02/2024 7:33 PM CDT URINALYSIS MICROSCOPIC STAT 10/02/2024 7:13 PM CDT URINE STAT 10/02/2024 7:13 PM CDT UA W/ SEDIMENT EXAM REFLEXED PER CRITERIA STAT 10/02/2024 7:13 PM CDT GC CHLAMYDIA TRACH PROBE Routine 06/29/2022 9:54 AM CDT Screening for STD (sexually transmitted disease) COMPUTER BUILDER THIN PREP PAP SCREEN IMAGED Routine 06/29/2022 9:54 AM CDT Screening for cervical cancer from Last 3 Months or Most Recently Relevant to Health Maintenance Results * HCG BETA QUANT, (10/04/2024 4:40 PM CDT) Only the most recent of2 resultswithin the time period is included. HCG BETA QUANT,PREGNANC Y 1,779 mIU/mL 10/04/2024 5:30 PM CDT [facility] Blood BLOOD SPECIMEN / Unknown Venipuncture / Unknown 10/04/2024 4:40 PM CDT 10/04/2024 4:40 PM CDT [facility] - 10/04/2024 5:30 PM CDT Expected Value for Healthy Non- premenopausal women <5.3mIU/mL FOR GESTATIONAL ASSESSMENT-See Range Table Below Weeks of gestation hCG mIU/mL 3 weeks gestation (5.8 - 71.2) 4 weeks gestation (9.5 - 750) 5 weeks gestation (217 - 7138) 6 weeks gestation (158 - 31,795) 7 weeks gestation (3,697 - 163,563) 8 weeks gestation (32,065 - 149,571) 9 weeks gestation (63,803 - 151,410) 10 weeks gestation (46,509 - 186,977) 12 weeks gestation (27,832 - 210,612) 14 weeks gestation (13,950 - 62,530) 15 weeks gestation (12,039 - 70,971) 16 weeks gestation (9,040 - 56,451) 17 weeks gestation (8,175 - 55,868) 18 weeks gestation (8,099 - 58,176) Biotin supplements may cause clinically significant interference for this test assay. If interference is suspected, it is strongly recommended that biotin is discontinued for at least one week prior to retesting. us Devorah Mari DO CHEMISTRY Final Result [facility] [address] [place], [place] [id number] * US OB 1ST TRI SINGLE TA AND TV (10/02/2024 9:38 PM CDT) Anatomical Region Laterality Modality Ultrasound 10/02/2024 10:1 9 PM CDT Impressions 10/02/2024 10:19 PM CDT Tiny 2 millimeter intrauterine cystic lesion. No definite intrauterine gestation seen. Although constellation of findings could suggest early gestation, of unknown location is not excluded. Recommend continued trending of beta HCG and short-term follow-up ultrasound as clinically indicated. Tiny 1.5 centimeter left ovarian heterogeneous lesion, possibly corpus luteal cyst. This could be followed up with on subsequent imaging as well. Dictated by Kingston Merrill MD @ 10/02/2024 10:19:41 PM (Electronically Signed) Narrative 10/02/2024 10:19 PM CDT For Patients: As a result of the Cures Act, medical imaging exams and procedure reports are released immediately into your electronic medical record. You may view this report before your referring provider. If you have questions, please contact your health care provider. INDICATION: Pain. TECHNIQUE: Ultrasound pelvis transabdominal and transvaginal for better assessment or to better visualize the endometrium. Real-time sonographic images with spectral and color Doppler imaging of the ovaries were obtained. COMPARISON: None. FINDINGS: Uterus: 7.8 x 5.7 x 4.5 cm. Normal echotexture of the myometrium. No masses. Endometrium: Transvaginal imaging was performed to better evaluate the endometrium. Endometrial thickness measures 16 mm. Tiny 2 millimeter intrauterine cystic lesion. No definite intrauterine gestation seen. No sign of endometrial mass or fluid. Right ovary 3.3 x 3.8 x 2.0 centimeters. Left ovary 3.5 x 3.3 x 2.0 centimeters. 1.5 centimeter left ovarian heterogeneous lesion, possibly a corpus luteal cyst. Additional tiny bilateral ovarian follicles. Tiny right ovarian calcification. No ovarian or adnexal masses. Normal arterial and venous blood flow is demonstrated in both ovaries. Cul-de-sac: Trace free fluid. Procedure Note Kingston Merrill MD - 10/02/2024 For Patients: As a result of the Cures Act, medical imagingexams and procedure reports are released immediately into your electronicmedical record. You may view this report before your referring provider.If you have questions, please contact your health care provider. INDICATION: Pain. TECHNIQUE: Ultrasound pelvis transabdominal and transvaginal for better assessment orto better visualize the endometrium. Real-time sonographic images withspectral and color Doppler imaging of the ovaries were obtained. COMPARISON: None. FINDINGS: Uterus: 7.8 x 5.7 x 4.5 cm. Normal echotexture of the myometrium. Nomasses. Endometrium: Transvaginal imaging was performed to better evaluate theendometrium. Endometrial thickness measures 16 mm. Tiny 2 millimeterintrauterine cystic lesion. No definite intrauterine gestation seen. Nosign of endometrial mass or fluid. Right ovary 3.3 x 3.8 x 2.0 centimeters. Left ovary 3.5 x 3.3 x 2.0centimeters. 1.5 centimeter left ovarian heterogeneous lesion, possibly acorpus luteal cyst. Additional tiny bilateral ovarian follicles. Tinyright ovarian calcification. No ovarian or adnexal masses. Normal arterialand venous blood flow is demonstrated in both ovaries. Cul-de-sac: Trace free fluid. IMPRESSION: Tiny 2 millimeter intrauterine cystic lesion. No definite intrauterinegestation seen. Although constellation of findings could suggest earlygestation, of unknown location is not excluded. Recommendcontinued trending of beta HCG and short-term follow-up ultrasound asclinically indicated. Tiny 1.5 centimeter left ovarian heterogeneous lesion, possibly corpusluteal cyst. This could be followed up with on subsequent imaging aswell. Dictated by Kingston Merrill MD @ 10/02/2024 10:19:41 PM (Electronically Signed) us Abdirahman KOHLI US Final Re sult * (ABNORMAL) CBC WITH AUTO DIFFERENTIAL (10/02/2024 7:33 PM CDT) WHITE BLOOD COUNT 8.1 4.5 - 11.0 thou/cu mm 10/02/2024 7:43 PM CDT [facility] RED BLOOD COUNT 4.82 4.00 - 5.20 mil/cu mm 10/02/2024 7:43 PM CDT [facility] HEMOGLOBIN 12.3 12.0 - 16.0 g/dL 10/02/2024 7:43 PM CDT [facility] HEMATOCRIT 37.6 33.0 - 51.0 % 10/02/2024 7:43 PM [facility] MCV 78(L) 80 - 100 fL 10/02/2024 7:43 PM [facility] MCH 25.5(L) 26.0 - 34.0 pg 10/02/2024 7:43 PM [facility] MCHC 32.7 32.0 - 36.0 g/dL 10/02/2024 7:43 PM [facility] RDW 12.9 11.5 - 15.5 % 10/02/2024 7:43 PM [facility] PLATELET COUNT 197 140 - 440 thou/cu mm 10/02/2024 7:43 PM [facility] MPV 10.4 6.5 - 11.0 fL 10/02/2024 7:43 PM [facility] % NEUT 53.5 % 10/02/2024 7:43 PM [facility] % LYMPH 36.6 % 10/02/2024 7:43 PM [facility] % MONO 8.3 % 10/02/2024 7:43 PM [facility] % EOS 1.5 % 10/02/2024 7:43 PM [facility] % BASO 0.1 % 10/02/2024 7:43 PM [facility] ABSOLUTE NEUTROPHILS 4.3 1.7 - 7.0 thou/cu mm 10/02/2024 7:43 PM [facility] ABSOLUTE LYMPHOCYTES 3.0(H) 0.9 - 2.9 thou/cu mm 10/02/2024 7:43 PM [facility] ABSOLUTE MONOCYTES 0.7 <0.9 thou/cu mm 10/02/2024 7:43 PM [facility] ABSOLUTE EOSINOPHILS 0.1 <0.5 thou/cu mm 10/02/2024 7:43 PM [facility] ABSOLUTE BASOPHILS 0.0 <0.3 thou/cu mm 10/02/2024 7:43 PM [facility] Blood BLOOD SPECIMEN / Unknown Venipuncture / Unknown 10/02/2024 7:33 PM CDT 10/02/2024 7:36 PM CDT us Abdirahman KOHLI HEMATOLOGY Final Re sult [facility] [address] [facility] [place] [address] * (ABNORMAL) BASIC METABOLIC PANEL (10/02/2024 7:33 PM CDT) SODIUM 138 136 - 145 mmol/L 10/02/2024 7:59 PM [facility] POTASSIUM 4.3 3.5 - 5.1 mmol/L 10/02/2024 7:59 PM [facility] CHLORIDE 104 98 - 107 mmol/L 10/02/2024 7:59 PM [facility] CO2,TOTAL 22 22 - 29 mmol/L 10/02/2024 7:59 PM [facility] ANION GAP 12 5 - 18 10/02/2024 7:59 PM [facility] GLUCOSE 92 70 - 99 mg/dL 10/02/2024 7:59 PM [facility] CALCIUM 9.0 8.8 - 10.4 mg/dL 10/02/2024 7:59 PM [facility] Comment: Reference ranges for this test were updated on 01/23/2024 to reflect our healthy population more accurately. Reference range changes are not retroactively applied to results, but previous results using the same methodology can be interpreted in the context of the new reference range. BUN 5(L) 6 - 20 mg/dL 10/02/2024 7:59 PM [facility] CREATININE 0.53 0.50 - 0.90 mg/dL 10/02/2024 7:59 PM [facility] BUN/CREAT RATIO 9(L) 10 - 20 7:59 PM [facility] eGFR >90 >90 mL/min/1.7 3m2 10/02/2024 7:59 PM [facility] Comment:As of 2021, eG FR is calculated by the CKD-EPI creatinine equation without race adjustment. eGFR can be influenced by muscle mass, exercise, and diet. The reported eGFR is an estimation only and is only applicable if the renal function is stable. Blood BLOOD SPECIMEN / Unknown Venipuncture / Unknown 10/02/2024 7:33 PM CDT 10/02/2024 7:36 PM CDT Abdirahman KOHLI CHEMISTRY Final Re sult Performing Organization Address [facility] de Phone Number [facility] [address] [place] [address] * URINALYSIS MICROSCOPIC (10/02/2024 7:13 PM CDT) RBC 0-2 0-2, None Seen /HPF 10/02/2024 7:41 PM CDT [facility] WBC 0-2 0-2, 3-5, None Seen /HPF 10/02/2024 7:41 PM CDT [facility] BACTERIA Rare None Seen, Rare, Few Bacteria/ HPF 10/02/2024 7:41 PM CDT [facility] EPITHELIAL CELLS None Seen None Seen, Few Epi/HPF 10/02/2024 7:41 PM CDT [facility] Urine URINE SPECIMEN / Unknown Non-Blood / Unknown 10/02/2024 7:13 PM CDT 10/02/2024 7:22 PM CDT Jay Jean MD URINE Fin al Result Performing Organization Address [facility] Co de Phone Number [facility] [address] [place] [address] * (ABNORMAL) UA W/ SEDIMENT EXAM REFLEXED PER CRITERIA (10/02/2024 7:13 PM CDT) COLOR Yellow Yellow Color 10/02/2024 7:35 PM CDT [facility] CLARITY Clear Clear Clarity 10/02/2024 7:35 PM CDT [facility] SPECIFIC GRAVITY,URINE 1.025 1.010, 1.015, 1.020, 1.025 10/02/2024 7:35 PM CDT [facility] PH,URINE 6.0 6.0, 7.0, 8.0, 5.5, 6.5, 7.5, 8.5 10/02/2024 7:35 PM T [facility] UROBILINOGEN, QUALITATIVE Normal Normal EU/dl 10/02/2024 7:35 PM T [facility] PROTEIN, URINE Negative Negative mg/dL 10/02/2024 7:35 PM T [facility] GLUCOSE, URINE Negative Negative mg/dL 10/02/2024 7:35 PM T [facility] KETONES,URINE 15(A) Negative mg/dL 10/02/2024 7:35 PM T [facility] BILIRUBIN,URI NE Negative Negative 10/02/2024 7:35 PM T [facility] OCCULT BLOOD,URINE Negative Negative 10/02/2024 7:35 PM T [facility] NITRITE Negative Negative 10/02/2024 7:35 PM T [facility] LEUKOCYTE ESTERASE Trace(A) Negative 10/02/2024 7:35 PM T [facility] Urine URINE SPECIMEN / Unknown Non-Blood / Unknown 10/02/2024 7:13 PM CDT 10/02/2024 7:22 PM CDT Jay Jean MD URINE Fin al Result [facility] [address] [place] [address] * (ABNORMAL) URINE (10/02/2024 7:13 PM CDT) ,URIN E Positive(P ositive) Negative 10/02/2024 7:35 PM CDT [facility] Comment:Is Rh typing necessa ry? Urine URINE SPECIMEN / Unknown Non-Blood / Unknown 10/02/2024 7:13 PM CDT 10/02/2024 7:22 PM CDT Abdirahman KOHLI URINE Final Re sult [facility] [address] [place] [address] * COMPUTER BUILDER THIN PREP PAP SCREEN IMAGED (06/29/2022 9:54 AM CDT) Case Report Gynecologic Cytology Report Case: [id number] Authorizing Provider: Juan C Workman Collected: 06/29/2022 0954 MD Annabella Ordering Location: [facility] Received: 06/29/2022 0954 Clinic First Screen: Selina Zuniga Specimen: COMPUTER BUILDER ThinPrep Vial Screening, Cervical 07/24/2022 11:46 AM CDT [facility] INTERPRETATION/ RESULT NEGATIVE FOR INTRAEPITHELIAL LESION OR MALIGNANCY (NIL) (none) 07/24/2022 11:46 AM CDT [facility] at 1146 CDT SPECIMEN ADEQUACY Satisfactory for evaluation Endocervical component present 07/24/2022 11:46 AM CDT [facility] Date of LMP 06/23/2022 07/24/2022 11:46 AM CDT [facility] Last Pap Date 2018 07/24/2022 11:46 AM CDT [facility] Last Pap Result NIL 11:46 AM CDT [facility] Abnormal Pap or Morris Bx in last 5 years No 07/24/2022 11:46 AM CDT [facility] Menstrual Status Regular Periods 07/24/2022 11:46 AM CDT [facility] Morris Bx Done Today No 07/24/2022 11:46 AM CDT [facility] Additional Information None given 07/24/2022 11:46 AM CDT [facility] Comment: [facility], [facility] - [address], [place] [address] [address] [facility] - [address], [place] [address] and [facility] - [address] [place] [address] Interpreted at [facility] - [address], [place] [address] Automated Review Successful 07/24/2022 11:46 AM CDT [facility] Comment:Specimen processed s uccessfully by automated sales agent trading stamps device, ThinPrep Imaging System, [employer] Note The pap test is a screening technique, not a diagnostic procedure. It is used primarily to screen for squamous cancers and precursor lesions. Published studies have shown that it is subject to both false negative and false positive results. The pap test should not be used as the sole means to diagnose or exclude pre-malignant and malignant lesions. 07/24/2022 11:46 AM CDT [facility] Other (Cervical) Non-Blood / Unknown 06/29/2022 9:54 AM CDT 06/29/2022 9:54 AM CDT Juan C Workman MD PATHOLOGY/CYTOLOG Y Final Result [facility] [address] [place] [address], [place] * GC CHLAMYDIA TRACH PROBE (06/29/2022 9:54 AM CDT) CHLAMYDIA PROBE Negative 8:53 PM CDT [facility] TRAL LABORATORY N GONORRHOEAE PROBE Negative 06/29/2022 8:53 PM CDT [facility] Other URINE SPECIMEN / Unknown Non-Blood / Unknown 06/29/2022 9:54 AM CDT 06/29/2022 9:54 AM CDT Juan C Workman MD MICROBIOLOGY F inal Result [facility] [address] [place] [address], [place] from Last 3 Months or Most Recently Relevant to Health Maintenance Insurance [facility] Care Teams City Recorder Relationship Specialty Start Date End Date None . PCP - General 03/16/22"
--- OUTSIDE RECORDS SUMMARY | 2024-10-22 21:26 | XMS_ITS | Encounter Summary ---
Author Organization [place] Address [address] [place] [address] Care Team Providers Care Adventure Therapist Name Role Phone Brenda Benjamin MD Primary Care Provider Brenda Benjamin MD Unavailable [phone] Mariaelena Cordova MD Unavailable [phone] Carrillo Grimm MD Unavailable [phone] Cristo Mckenzie MD Unavailable [phone] Elenita Fierro MD Unavailable [phone] Elenita Fierro MD Unavailable [phone] Cristo Mckenzie MD Unavailable Brenda Benjamin MD Unavailable [phone] Abhay Villar PA-C Unavailable [phone] Encounter Details Date Type Department Care Team (Late st Contact Info) Description 05/22/2019 MyC Medical Advice [facility] [id number] [place] [address], [address] [place] [address] Jayda Atkins Social History Tobacco Use Types Packs/Day Years Used Date Smoking Tobacco: Former Cigarettes Q uit: 03/06/2018 Smokeless Tobacco: Never Alcohol Use Standard Drinks/Week Comments No 0 (1 standard drink = 0.6 oz pur e alcohol) PHQ-2 Answer Date Recorded PHQ-2 Score 0 05/10/2018 Comments No Sex and Gender Information Value Date Recorded Sex Assigned at Not on file 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 Gender Identity Not on file Sexual Orientation Not on file documented as of this encounter Plan of Treatment Not on file documented as of this encounter Visit Diagnoses Not on filedocumented in this encounter Care Teams Adventure Therapist Relationship Specialty Start Date End Date Brenda Benjamin MD PCP - General Family Practice 04/21/10 09/24/24 Brenda Benjamin MD Referring Physician [facility] Practice 05/28/14 09/20/24 Mariaelena Cordova MD [address] [place] [id number] Resident Pediatrics 05/28/14 Carrillo Grimm MD [facility] [address] [place] [address] Orthopedics 05/28/14 Cristo Mckenzie MD [facility] [address] [place] [address] Consulting Physician 05/28/14 Elenita Fierro MD [facility] [address] [place] [address] Pediatric Rheumatology 05/28/14 Elenita Fierro MD [facility] [address] [place] [address] Pediatric Rheumatology 06/03/14 Cristo Mckenzie MD [facility] [address] [place] [address] 06/03/14 [place] [id number] [facility] [place] [address] Assigned PCP 02/24/19 11/30/19 Abhay Villar PA-C [id number] [place] [address] Assigned PCP 12/01/19 02/20/21 documented as of this encounter
[2024-10-22 21:35] VITALS: BP 114/71; PULSE 76; RESP 18; TEMP 37.6; O2SAT 99; BMI 22.9
--- NOTE | 2024-10-22 21:53 | ED_ITS ---
HPI - Abdominal Pain General Time Seen by Provider: 21:54 Date Seen: 10/22/24 Chief Complaint: Abdominal Pain Stated Complaint: abdominal pain, 8 weeks Time Seen by Provider: 10/22/24 21:53 Source: patient Mode of arrival: ambulatory History of Present Illness HPI narrative: Dionna is a 24-year-old female currently approximately 8 weeks by dates who presents the emergency department for evaluation of abdominal pain. Patient reports that yesterday she had a small amount of spotting which resolved. Patient states that today she has had some lower abdominal pressure as well as some left-sided back pain which he describes as a constant dull achy pain. Patient reports nausea, and feeling unwell. Patient denies any fever, chills, chest pain, cough, shortness of breath, vomiting. Patient reports constipation but did have a bowel movement today. Denies any dysuria, hematuria, no vaginal bleeding. Patient states that approximately 2-3 weeks ago she was seen at a [facility] emergency department for abdominal pain. At this time she did have ultrasound which was too early to confirm IUP. Patient did have hCG level at that time that did double upon repeat testing. No other complaints. Related Data Home Medications ?Medication ?Instructions ?Recorded ?Confirmed cyclobenzaprine 10 mg tablet 5 - 10 mg PO Q8H PRN musc le spasm 04/03/23 10/22/24 Held on 10/22/24. Instructions: desogestrel-e.estradiol 0.15 1 tab PO DAILY 04/03/23 0 10/22/24 mg-0.02 mg(21)/e.estrad 0.01 mg(5) tablet (Volnea (28)) Held on 10/22/24. Instructions: escitalopram oxalate 10 mg tablet 10 mg PO DAILY 04/0310/22/24 Held on 10/22/24. Instructions: hydroxyzine HCl 10 mg tablet 10 - 20 mg PO QPM PRN anx iety 04/03/23 10/22/24 Held on 10/22/24. Instructions: mupirocin 2 % topical ointment topical BID 04/03/23 Held on 10/22/24. Instructions: ' nystatin 100,000 unit/mL oral 5 ml PO QID 04/03/2308/11 suspension Held on 10/22/24. Instructions: valacyclovir 1 gram tablet 1,000 mg PO DAILY 04/03/23 10/22/24 Held on 10/22/24. Instructions: Allergies Allergy/AdvReac Type Severity Reaction Status Date / Time guanfacine Allergy Verified 10/22/24 21:40 Review of Systems Narrative Past medical history, past surgical history, medications, allergies, family history, and social history were reviewed with the patient. No additional pertinent items. A medically appropriate review of systems was performed with pertinent positives and negatives noted in HPI, all other systems negative. PFSH PFSH Social History Smoking Status: Never smoker Do you use any of these nicotine containing products: None Second hand tobacco smoke exposure: No How often do you have a drink containing alcohol: never How often do you have six or more drinks on one occasion: Never AUDIT-C Alcohol total score: 0 Non-prescribed substance use: denies use service: No Exam Narrative: Exam Narrative: General: Afebrile, no acute distress HEENT: Normocephalic, atraumatic, conjunctiva normal. MMM Neck: non-tender, supple Cardio: regular rate. regular rhythm Resp: Normal work of breathing, no respiratory distress, lungs clear bilaterally, no wheezing, rhonchi, rales Chest/Back: no visual signs of trauma, no midline tenderness, no CVA tenderness Abdomen: soft, non distension, no tenderness, no peritoneal signs Neuro: alert and fully oriented. CN II-XII grossly intact. Grossly normal strength and sensation in all extremities. MSK: no deformities. Normal range of motion Integumentary/Skin: no rash visualized, normal color Psych: normal affect, normal behavior Const: Vital Signs, click to edit/add: Vital Signs - 24 hr 10/22/24 21:35 Temperature 99.6 F Pulse Rate [Left P ulse Oximeter] 76 Respiratory Rate 18 Blood Pressure [Ri ght Upper Arm] 114/71 Pulse Oximetry 99 Oxygen Delivery Me thod Room Air Course Vital Signs Vital signs: Initial Vital Signs Temperature 99.6 F 10/22/24 21:35 Temperature Source Temporal Artery Scan 10/22/24 21:35 Pulse Rate 76 10/22/24 21:35 Respiratory Rate 18 10/22/24 21:35 Blood Pressure 114/71 10/22/24 21:35 Blood Pressure Mean 85 10/22/24 21:35 Blood Pressure Position Sitting 10/22/24 21:35 Pulse Oximetry 99 10/22/24 21:35 Oxygen Delivery Method Room Air 10/22/24 21:35 Vital Signs Temperature 99.6 F 10/22/24 21:35 Pulse Rate 76 10/22/24 21:35 Respiratory Rate 18 10/22/24 21:35 Blood Pressure 114/71 10/22/24 21:35 Pulse Oximetry 99 10/22/24 21:35 Oxygen Delivery Method Room Air 10/22/24 21:35 Temperature 99.6 F 10/22/24 21:35 Pulse Rate 76 10/22/24 21:35 Respiratory Rate 18 10/22/24 21:35 Blood Pressure 114/71 10/22/24 21:35 Pulse Oximetry 99 10/22/24 21:35 Oxygen Delivery Method Room Air 10/22/24 21:35 Medications Administered Medications: Discontinued Medications Generic Name Dose Route Start Last Admin Trade Name Dellq PRN Reason Stop Dose Admin Acetaminophen 1,000 mg 10/22/24 22:09 10/22/24 22:22 Acetaminophen 500 Mg Tablet PO 10/22/24 22:10 1,000 mg ONCE ONE Administration MDM - Abdominal Pain MDM Narrative Medical decision making narrative: Dionna is a 24-year-old female currently approximately 8 weeks by dates who presents the emergency department for evaluation of abdominal pain. Upon arrival patient is nontoxic appearing, afebrile, no distress. Patient hemodynamically stable vital signs within normal limits. Differential diagnosis includes but is not limited to intrauterine versus ectopic versus threatened versus subchorionic hemorrhage versus urinary tract infection versus pyelonephritis versus nephrolithiasis among others. Upon arrival patient was treated with Tylenol, comprehensive labs, urinalysis, pelvic ultrasound performed. Comprehensive labs remarkable for white blood cell count of 9.15, hemoglobin 12.6, no acute metabolic electrolyte abnormality, no transaminitis. Urinalysis cloudy, with few bacteria, negative nitrates, negative leukocyte Estrace. Patient with no urinary symptoms however given patient's current status, will treat for asymptomatic bacteriuria with Keflex. I personally reviewed interpreted ultrasound which demonstrates single live intrauterine with heart rate of 154 beats per minute, 7 weeks 1 day. Tiny subchorionic hemorrhage. I discussed results with patient. Patient does have follow-up with OBGYN on 11/04 and will have repeat ultrasound at that time. Beta hCG 110,000. Patient with no vaginal bleeding, reports some ongoing discomfort despite taking Tylenol. At this time patient feels comfortable discharge home with continued supportive care, close outpatient follow-up and strict return precautions discussed. Patient understands and agrees to the plan. Medical Records Attestation: I reviewed the patient's medical records. Lab Data Attestation: I reviewed the patient's lab results. Labs: Lab Results 10/22/24 10/22/24 Range/Units 22:14 23:10 WBC 9.15 (4.50-11.00) K/uL RBC 4.83 (4.00-5.20) m/uL Hgb 12.6 (12.0-16.0) gm/dL Hct 37.7 (33.0-51.0) % MCV 78 L (80-100) fL MCH 26 (26-34) pg MCHC 33 (32-36) gm/dL RDW Coeff of Jose 12.2 (11.5-15.5) % Plt Count 236 (140-440) K/uL Neut % (Auto) 58.9 (42.0-72.0) % Lymph % (Auto) 32.0 (20-44) % Rice % (Auto) 7.8 (0.0-11.0) % Eos % (Auto) 0.8 (0.0-7.0) % Baso % (Auto) 0.3 (0.0-3.0) % Neut # (Auto) 5.39 (1.7-7.0) K/uL Lymph # (Auto) 2.93 H (0.90-2.90) K/uL Rice # (Auto) 0.70 (0.00-0.90) K/UL Eos # (Auto) 0.07 (0.00-0.50) K/uL Baso # (Auto) 0.03 (0.00-0.30) K/uL Abs Immat Gran (auto) 0.02 (0.00-0.30) K/uL Imm/Tot Granulo (auto) 0.2 % Sodium 134 L (135-149) mmol/L Potassium 4.0 (3.6-5.1) mmol/L Chloride 103 (96-114) mmol/L Carbon Dioxide 24 (20-32) mmol/L Anion Gap 7 (7-15) mEq/L BUN 9 (5-24) mg/dL Creatinine 0.5 (0.5-1.5) mg/dL Estimated Creat Clear 137.22 Estimated GFR 134 ml/min Glucose 91 (60-115) mg/dL Calcium 9.7 (8.4-10.6) mg/dL Total Bilirubin 0.3 (0.1-1.5) mg/dL AST 24 (12-35) U/L ALT 18 (4-35) U/L Alkaline Phosphatase 56 (40-150) U/L Total Protein 7.3 (6.0-8.3) g/dL Albumin 4.5 (3.3-5.0) g/dL HCG, Quant 834711.00 mIU/mL Urine Color Yellow (Yellow) Urine Appearance Cloudy A (Clear) Urine pH 7.5 (5.0-8.5) Ur Specific Lula 1.015 (1.000-1.030) Urine Protein Negative (Negative) Urine Glucose (UA) Negative (Negative) Urine Ketones Negative (Negative) Urine Blood Negative (Negative) Urine Nitrite Negative (Negative) Urine Bilirubin Negative (Negative) Urine Urobilinogen 0.2 (0.2-1.0) Ur Leukocyte Esterase Negative (Negative) Urine RBC 0-2 (0-2) Urine WBC 0-2 (0-5) Ur Squamous Epith Cells Moderate A (None-Few) Amorphous Sediment Moderate A (None) Urine Bacteria Few A (None) Discharge Plan Discharge Clinical Impression: Abdominal pain in early Patient Disposition: Home, Self-Care Condition: Stable Additional Instructions: Please follow-up with your OBGYN at your currently scheduled appointment. Please take Tylenol every 6 hours as needed for pain. Please take antibiotics as directed (500 mg 3 times a day for the next 5 days). Return to the emergency department if he develops severe pain, persistent vomiting, persistent heavy bladder vaginal bleeding, or any worsening symptoms. It was a pleasure taking care of you today. We hope you have a great week. Prescriptions: No Action escitalopram oxalate 10 mg tablet 10 mg PO DAILY nystatin 100,000 unit/mL suspension 5 ml PO QID desog-e.estradiol/e.estradiol [Volnea (28)] 0.15-0.02 mgx21 /0.01 mg x 5 tablet 1 tab PO DAILY mupirocin 2 % ointment topical BID hydroxyzine HCl 10 mg tablet 10 - 20 mg PO QPM PRN (Reason: anxiety) valacyclovir 1 gram tablet 1,000 mg PO DAILY cyclobenzaprine 10 mg tablet 5 - 10 mg PO Q8H PRN (Reason: muscle spasm) Follow Up/Referrals: Miller Mary MS, LAT, ATC [Shorts Sifter Certified, Athletic Training] Stand Alone Forms: [facility] Info Instructions
--- NOTE | 2024-10-22 22:09 | CRLHL7_ITS ---
For Patients: As a result of the Century Cures Act, medical imaging exams and procedure reports are released immediately into your electronic medical record. You may view this report before your referring provider. If you have questions, please contact your health care provider. INDICATION: Abdominal pain, spotting. TECHNIQUE: Ultrasound OB pelvis transvaginal. Real-time earl-scale imaging of the pelvis was performed. COMPARISON: None. FINDINGS: There is a single intrauterine gestation. The embryo demonstrates a regular cardiac rate measuring 154 beats per minute. The embryo`s crown rump length measurement of 1.0 cm corresponds to a gestational age of 7 weeks 1 day with a sonographic due date of 06/09/2025. There is a normal appearing yolk sac. There are no gross abnormalities noted within the embryo at this early state of development. The placenta has not yet developed. There is a tiny perigestational hemorrhage. The ovaries are of normal size. There are no suspicious fluid collections noted in the cul-de-sac. IMPRESSION: Single viable intrauterine measuring 7 weeks 1 day. Tiny subchorionic hemorrhage. Dictated by Lacho Corley MD @ 10/22/2024 11:25:44 PM (Electronically Signed)
[2024-10-22] MEDS: ACETAMINOPHEN 500 MG TABLET 1000 MG PO (22:22)
[2024-10-22 22:25] LABS: Hematocrit 37.7 % (33.0-51.0); Hemoglobin* 12.6 gm/dL (12.0-16.0); Immature Granulocytes Abs Auto 0.02 K/uL (0.00-0.30); Immature Granulocytes Pct Auto 0.2 %; Lymphocytes Absolute Auto 2.93 K/uL (0.90-2.90); Mean Corpuscular HGB Conc 33 gm/dL (32-36); Mean Corpuscular Hemoglobin 26 pg (26-34); Mean Corpuscular Volume 78 fL (80-100); RDW Coefficient of Variation % 12.2 % (11.5-15.5); Red Blood Count 4.83 m/uL (4.00-5.20); White Blood Count* 9.15 K/uL (4.50-11.00)
[2024-10-22 22:28] LABS: Slide Review Reflex No
[2024-10-22 22:33] LABS: Albumin* 4.5 g/dL (3.3-5.0); Chloride* 103 mmol/L (96-114); Potassium* 4.0 mmol/L (3.6-5.1); Sodium* 134 mmol/L (135-149)
[2024-10-22 22:35] LABS: Blood Urea Nitrogen* 9 mg/dL (5-24); Creatinine* 0.5 mg/dL (0.5-1.5); Est. Creatinine Clearance* 137.22; Estimated Glomerular Filt Rate 134 ml/min
[2024-10-22 22:36] LABS: Alanine Aminotransferase* 18 U/L (4-35); Alkaline Phosphatase* 56 U/L (40-150); Anion Gap 7 mEq/L (7-15); Aspartate Amino Transferase* 24 U/L (12-35); Bilirubin Total* 0.3 mg/dL (0.1-1.5); Calcium* 9.7 mg/dL (8.4-10.6); Carbon Dioxide* 24 mmol/L (20-32); Glucose* 91 mg/dL (60-115); Total Protein* 7.3 g/dL (6.0-8.3)
[2024-10-22 23:15] LABS: Appearance Urine Cloudy (Clear)
[2024-10-22 23:22] LABS: HCG Quantitative* 110880.00 mIU/mL
== END 2024-10-23 | disposition home or self-care (01) ==
PROVIDERS: Emergency Provider Emergency Medicine
DX: O26.891 Other specified pregnancy related conditions, first trimester (principal); R10.9 Unspecified abdominal pain; Z3A.08 8 weeks gestation of pregnancy
CPT/HCPCS: 36415; 76817; 80053; 81001; 84702; 85025; 87086; 99284; 99285; A9270

== ENCOUNTER 2024-11-04 16:51 | Outpatient (CLI) | payer BC, SELFPAY ==
--- NOTE | 2024-11-04 16:45 | CRLHL7_ITS ---
For Patients: As a result of the Century Cures Act, medical imaging exams and procedure reports are released immediately into your electronic medical record. You may view this report before your referring provider. If you have questions, please contact your health care provider. OB ULTRASOUND FIRST TRIMESTER TRANSVAGINAL INDICATION: Dating and viability. TECHNIQUE: Real time earl scale, color and spectral Doppler imaging of the fetus was performed. Transvaginal imaging performed. LMP: 08/27/2024. ANTONY by LMP: 06/03/2025. GA: 9 w, 6 d. Previous US: Yes, 10/22/2024. ANTONY by US: 06/09/2025. GA: 7 w, 1 d. CRL: 2.5 cm. 9 w 1 d. ANTONY: 06/08/2025. FHR: 185 BPM. Gestational sac: 4.5 cm. Appears within normal limits. Yolk sac: 3.8 mm. Appears within normal limits. Right ovary: Within normal limits. 3.4 x 1.3 x 1.4 cm. Left ovary: Within normal limits. 3.3 x 2.2 x 2.3 cm. IMPRESSION: 1. Single viable intrauterine . 2. 9 weeks 1 day by today???s ultrasound measurements. 3. Small subchorionic hemorrhage measuring 3 x 5 x 12 mm. Espinoza Prasad M.D. Body/Diagnostic Radiologist [email or web address] SP/Dictated by: Espinoza Prasad MD @ 11/06/2024 12:48:00 PM (Electronically Signed)
== END 2024-11-04 16:52 | disposition home or self-care (01) ==
LOC: US 16:51
PROVIDERS: Visit Provider Physician Assistant
DX: Z34.91 Encounter for supervision of normal pregnancy, unspecified, first trimester (principal); O20.9 Hemorrhage in early pregnancy, unspecified; Z3A.09 9 weeks gestation of pregnancy
CPT/HCPCS: 76817

== ENCOUNTER 2024-11-04 18:01 | Outpatient (CLI) | payer BC, SELFPAY ==
[2024-11-04 21:07] LABS: Chlamydia DNA Amplified* NOT DETECTED (No Detected); GC DNA Amplified* NOT DETECTED (No Detected)
== END 2024-11-04 18:02 | disposition home or self-care (01) ==
PROVIDERS: Visit Provider Physician Assistant
DX: O20.9 Hemorrhage in early pregnancy, unspecified (principal); Z3A.09 9 weeks gestation of pregnancy; Z34.91 Encounter for supervision of normal pregnancy, unspecified, first trimester
CPT/HCPCS: 83020; 83021; 85660; 86592; 86703; 86704; 86706; 86762; 86787; 86803; 86850; 86900; 86901; 87086; 87340; 87491; 87591

== ENCOUNTER 2024-12-10 14:24 | Emergency (ER) | payer BC, SELFPAY ==
--- OUTSIDE RECORDS SUMMARY | 2024-12-10 14:28 | XMS_ITS | Clinical Summary ---
Author Organization [facility] Address [address] [place] [id number] Care Team Providers Care Tree Climber Name Role Phone None Primary Care Provider Unavailabl e Allergies Active Allergy Reactions Criticality Noted Date Comments Dextromethorphan-Guai fenesin Other - Describe In Comment Field,Dizziness Low 04/10/2012 Fever and vomiting. Fever and vomiting. Pseudoephedrine-Guaif enesin Fever,Vomiting 03/28/2013 Unlisted Allergen (Include Detail In Comments) Other - Describe In Comment Field 04/10/2012 Guaifenesin- Fever and vomiting. Medications valACYclovir (Valtrex) 500 mg tabletIndications: Herpes simplex type 2 infection Take 1 Tablet (500 mg) by mouth once daily. 90 Tablet 4 07/06/19 23 Active albuterol HFA (PRO-AIR; VENTOLIN; PROVENTIL) 90 mcg/actuation inhalerIndications :Chest pain, unspecified type Inhale 2 Puffs by mouth every 4 hours if needed for Shortness of Breath 1st choice. 1 Each 05/14/19 24 Active albuterol HFA (PRO-AIR; VENTOLIN; PROVENTIL) 90 mcg/actuation inhalerIndications :Cough, unspecified type Inhale 1-2 Puffs by mouth every 4 hours if needed for Shortness Of Breath or Wheezing. 1 Each 03/05/20 24 Active 2-UBUX-SJIOS ACID-OM3 ORAL Take by mouth. Active hydrOXYzine HCL (ATARAX) 10 mg tabletIndications: ERON (generalized anxiety disorder) Take 1 Tablet (10 mg) by mouth every 8 hours if needed for Anxiety (sleep). 60 Tablet 2 12/04/19 25 Active escitalopram oxalate (Lexapro) 5 mg tabletIndications: ERON (generalized anxiety disorder) Take 1 Tablet (5 mg) by mouth once daily. 30 Tablet 1 12/04/19 25 Active ondansetron (ZOFRAN ODT) 4 mg disintegrating tabletIndications: Viral URI with cough Place 1 Tablet (4 mg) on the tongue every 8 hours if needed for Nausea/Vomiti ng. 10 Tablet 12/11/19 25 Active ibuprofen (IBUPROFEN IB) 200 mg tablet Take 1 tablet by mouth 4 times daily if needed. PRN 0 02/20/20 12 025 Discontin ued(*Angie ent states no longer taking) ondansetron (ZOFRAN ODT) 4 mg disintegrating tabletIndications: Nausea,Acute diarrhea Place 1 Tablet (4 mg) on the tongue every 8 hours if needed for Nausea/Vomiti ng. 20 Tablet 09/04/19 24 025 Discontin ued(*Angie ent states no longer taking) amitriptyline 10 mg tabletIndications: Migraine without aura and without status migrainosus, not intractable Take 2 Tablets (20 mg) by mouth at bedtime. 180 Tablet 3 04/10/19 25 025 Discontin ued(*Angie ent states no longer taking) hydrOXYzine HCL (ATARAX) 10 mg tabletIndications: ERON (generalized anxiety disorder) Take 1 Tablet (10 mg) by mouth 3 times daily if needed for Anxiety (sleep). 60 Tablet 2 05/03/19 25 025 Discontin ued(Reord er (E-cancel not sent)) ondansetron (ZOFRAN ODT) 4 mg disintegrating tabletIndications: Abdominal pain, unspecified abdominal location Place 1 Tablet (4 mg) on the tongue every 8 hours if needed for Nausea/Vomiti ng. 12 Tablet 06/04/19 25 025 Discontin ued(*Angie ent states no longer taking) Active Problems Problem Noted Date Diagnosed Date Mild intermittent asthma without complication Recurrent major depressive disorder, in full rem ission 09/29/2023 ERON (generalized anxiety disorder) 10/26/2022 HSV-2 (herpes simplex virus 2) infection 023 Pap smear for cervical cancer screening 06/19/19 Overview (07/25/2022): 06/2022 NIL Plan: Pap/HPV due in 3 years Myopia 12/27/2007 Comments Yes Resolved Problems Problem Noted Date Diagnosed Date Resolved Date Mild episode of recurrent ma thom depressive disorder 10/26/2022 08/29/2024 Encounters Date Type Department Care Team Description 12/10/2024 11:51 AM CDT - 12/10/2024 1:37 PM CDT Emergency [facility] [address] [place] [address] Jonel Negrete MD Viral URI with cough (Primary Dx); as incidental finding (HC) Discharge Disposition: Home Self Care 12/10/2024 Travel 12/03/2024 8:45 AM CDT Office Visit [facility] [place] [address] [place] [address] Carlyn Villafuerte NP Follow Up; Medication Management 12/02/2024 Travel 10/04/2024 4:32 PM CDT - 10/04/2024 11:59 PM CDT Hospital Encounter [facility] [address] [place] [address] Abdominal pain affecting (HC) 10/04/2024 Travel 10/03/2024 Telephone [facility] [address] [place] [address] Devorah Acsota DO Appointment Request (STAT // REFERRAL) 10/02/2024 7:06 PM CDT - 10/02/2024 10:29 PM CDT Emergency [facility] [address] [place] [address] Abdirahman Valverde PA Abdominal pain affecting (HC) (Primary Dx) Discharge Disposition: Home Self Care 10/02/2024 Travel from Last 3 Months Immunizations Immunization Administration Dates Next Due DTaP 2000,2000,2000 [id number] (Pediarix) 10/17/2005 HIB-HepB (Comvax) 2000,2000 HPV 9 [...] Used Date Smoking Tobacco: Former Cigarettes 0.3 1 S tarted: 12/15/2023 Passive Smoke Exposure: Yes Smokeless Tobacco: Never Tobacco Cessation:Counseling Given: Not Answered Comments:stress smoking Alcohol Use Standard Drinks/Week Comments Yes 0 (1 standard drink = 0.6 oz pur e alcohol) Rarely - 6 drinks a year PHQ-2 Answer Date Recorded PHQ-2 TOTAL SCORE 0 12/02/2024 Social Connections Answer Date Recorded Do you [...] or yelled at (see row info)? No 12/10/2024 Interpersonal Safety Abuse 12 - 18 Not on file 12/10/2024 Interpersonal Safety Ambulatory Vulnerability No t on file 12/10/2024 Utilities Answer Date Recorded Do you have trouble paying f or utilities (for example, heat, electricity, water, phone)? 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 Gender Identity Not on file Sexual Orientation Not on file Occupation Industry Job Start Date Job End Date [employer] for [employer] person Not on file Not [...] Sign Reading Time Taken Comments Blood Pressure 114/72 12/10/2024 1:30 PM CDT Pulse 95 12/10/2024 1:30 PM CDT Temperature 37.1 C (98.7 F) 12/10/2024 11:59 AM CDT Respiratory Rate 16 12/10/2024 11:59 AM CDT Oxygen Saturation 98% 12/10/2024 1:30 PM CDT Inhaled Oxygen Concentration - - Weight 57 kg (125 lb 9.6 oz) 12/10/2024 11:59 AM CDT Height 157.5 cm (5' 2) 12/10/2024 12:00 PM CDT Body Mass Index 22.97 12/10/2024 11:59 AM CDT Plan of Treatment Upcoming Encounters Date Type Department Care Team (Late st Contact Info) Description 01/02/2025 12:45 PM CDT Telemedicine [facility] [place] [address] [place] [address] Carlyn Villafuerte NP [address] [place] [address] Health Maintenance Due Date Last Done Comments HIV for age 15-65 01/18/2015 Hepatitis C screening for age 18-79 01/18/2018 Tetanus booster 11/12/2022 11/12/2012 Chlamydia for age 16-24 06/30/2023 06/30/19, 02/20/2018 (Verified in Care Everywhere or Patient Record) COVID-19 vaccine series (1 - 2023- season) 2024 Influenza Vaccine (#1) 2024 BMI (ht and wt on same day) for age 18+ 03/01/2025 03/01/2024, 09/04/2023, 01/09/2023, Additional history exists Pap test for age 21-65 06/29/2025 06/29/2022 Depression screening for age 12+ 12/03/2025 12/03/2024, 12/02/2024, 05/03/2024, Additional history exists RSV vaccine for adults or (1 - 1-dose 75+ series) 01/18/2075 Pneumococcal series for age 6-49 Aged Out 2000, 2000, 2000 No longer eligible based on patient's age to complete this topic Hepatitis B series for 19+ Completed 10/17, 2000, 2000 HPV series for age 9-45 Completed 11/25/19 17, 09/14/2015, 09/14/2015, Additional history exists Procedures Procedure Name Priority Date/Time Associated Diagnosis Comments INFLUENZA A/B PCR Today 12/10/2024 12: 02 PM CDT COVID-19 MOLECULAR Today 12/10/2024 12 :02 PM CDT HCG BETA QUANT, Today 10/04/2024 4:40 PM [...] CDT Screening for STD (sexually transmitted disease) PEOPLE GREETER THIN PREP PAP SCREEN IMAGED Routine 06/29/2022 9:54 AM CDT Screening for cervical cancer from Last 3 Months or Most Recently Relevant to Health Maintenance Results * COVID-19 MOLECULAR (12/10/2024 12:02 PM CDT) COVID 19 [facility] MOLECULAR Not detected Not detected 12/10/2024 12:30 PM CDT [facility] TESTING LABORATORY [facility] Laboratory 12/10/2024 12:30 PM CDT [facility] Comment:Specimen submitted t o [facility] Laboratory for testing. Other SPECIMEN FROM NASOPHARYNGEAL STRUCTURE / Unknown Non-Blood / Unknown 12/10/2024 12:02 PM CDT 12/10/2024 12:07 PM CDT Jonel Negrete MD MICROBIOLOGY Final R esult [facility] [address] [place] [address] * INFLUENZA A/B PCR (12/10/2024 12:02 PM CDT) Pathologist [facility] [place] INFLUENZA A PCR NOT Detected 12/10/2024 12:30 PM CDT [facility] INFLUENZA B PCR NOT Detected 12/10/2024 12:30 PM CDT [facility] Other SPECIMEN FROM NASOPHARYNGEAL STRUCTURE / Unknown Non-Blood / Unknown 12/10/2024 12:02 PM CDT 12/10/2024 12:07 PM CDT Jonel Negrete MD MICROBIOLOGY Final R esult [facility] [address] [place] [address] * HCG BETA QUANT, (10/04/2024 4:40 PM CDT) Only the most recent of2 resultswithin the time period is included. Pathologist [facility] [place] HCG BETA QUANT,PREGNANC Y 1,779 mIU/mL 10/04/2024 5:30 PM CDT [facility] Blood BLOOD SPECIMEN / Unknown Venipuncture / Unknown 10/04/2024 4:40 PM CDT 10/04/2024 4:40 PM CDT [facility] - 10/04/2024 5:30 PM CDT Expected [...] gestation (8,175 - 55,868) 18 weeks gestation (8,509 - 58,176) Biotin supplements may cause clinically significant interference for this test assay. If interference is suspected, it is strongly recommended that biotin is discontinued for at least one week prior to retesting. us Devorah Mari DO CHEMISTRY Final Result [facility] [address] [place] [address] * US OB 1ST TRI SINGLE TA [...] - 11.0 thou/cu mm 10/02/2024 7:[address] [facility] RED BLOOD COUNT 4.82 4.00 - 5.20 mil/cu mm 10/02/2024 7:[address] [facility] HEMOGLOBIN 12.3 12.0 - 16.0 g/dL 10/02/2024 7:[address] [facility] HEMATOCRIT 37.6 33.0 - 51.0 % 10/02/2024 7:[address] [facility] MCV 78(L) 80 - 100 fL 10/02/2024 7:[address] [facility] MCH 25.5(L) 26.0 - 34.0 pg 10/02/2024 7:[address] [facility] MCHC 32.7 32.0 - 36.0 g/dL 10/02/2024 7:[address] [facility] RDW 12.9 11.5 - 15.5 % 10/02/2024 7:[address] [facility] PLATELET COUNT 197 140 - 440 thou/cu mm 10/02/2024 7:[address] [facility] MPV 10.4 6.5 - 11.0 fL 10/02/2024 7:[address] [facility] % NEUT 53.5 % 10/02/2024 7:[address] [facility] % LYMPH 36.6 % 10/02/2024 7:[address] [facility] % MONO 8.3 % 10/02/2024 7:[address] [facility] % EOS 1.5 % 10/02/2024 7:[address] [facility] % BASO 0.1 % 10/02/2024 7:[address] [facility] ABSOLUTE NEUTROPHILS 4.3 1.7 - 7.0 thou/cu mm 10/02/2024 7:43 PM CDT [facility] ABSOLUTE LYMPHOCYTES 3.0(H) 0.9 - 2.9 thou/cu mm 10/02/2024 7:43 PM CDT [facility] ABSOLUTE MONOCYTES 0.7 <0.9 thou/cu mm 10/02/2024 7:43 PM T [facility] ABSOLUTE EOSINOPHILS 0.1 <0.5 thou/cu mm 10/02/2024 7:43 PM T [facility] ABSOLUTE BASOPHILS 0.0 <0.3 thou/cu mm 10/02/2024 7:[address] [facility] Blood BLOOD SPECIMEN / Unknown Venipuncture / Unknown 10/02/2024 7:33 PM CDT 10/02/2024 7:36 PM CDT us Abdirahman Ryan KOHLI HEMATOLOGY Final Re sult [facility] [address] [place] [address] * (ABNORMAL) BASIC METABOLIC PANEL (10/02/2024 7:33 PM CDT) SODIUM 138 136 - 145 mmol/L 10/02/2024 7:[address] [facility] POTASSIUM 4.3 3.5 - 5.1 mmol/L 10/02/2024 7:[address] [facility] CHLORIDE 104 98 - 107 mmol/L 10/02/2024 7:[address] [facility] CO2,TOTAL 22 22 - 29 mmol/L 10/02/2024 7:[address] [facility] ANION GAP 12 5 - 18 10/02/2024 7:[address] [facility] GLUCOSE 92 70 - 99 mg/dL 10/02/2024 7:[address] [facility] CALCIUM 9.0 8.8 - 10.4 mg/dL 10/02/2024 7:[address] [facility] Comment: Reference ranges for this test were updated on 01/23/2024 to reflect our healthy population more accurately. Reference range changes are not retroactively applied to results, but previous results using the same methodology can be interpreted in the context of the new reference range. BUN 5(L) 6 - 20 mg/dL 10/02/2024 7:59 PM CDT [facility] CREATININE 0.53 0.50 - 0.90 mg/dL 10/02/2024 7:[address] [facility] BUN/CREAT RATIO 9(L) 10 - 20 7:59 PM T [facility] eGFR >90 >90 mL/min/1.7 3m2 10/02/2024 7:[address] [facility] Comment:As of 2021, eG FR is calculated by the CKD-EPI creatinine equation without race adjustment. eGFR can be influenced by muscle mass, exercise, and diet. The reported eGFR is an estimation only and is only applicable if the renal function is stable. Blood BLOOD SPECIMEN / Unknown Venipuncture / Unknown 10/02/2024 7:33 PM CDT 10/02/2024 7:36 PM CDT us Abdirahmanjavier KOHLI CHEMISTRY Final Re sult [facility] [address] [place] [address] * URINALYSIS MICROSCOPIC (10/02/2024 7:13 PM CDT) RBC 0-2 0-2, None Seen /HPF 10/02/2024 7:41 PM CDT [facility] WBC 0-2 0-2, 3-5, None Seen /HPF 10/02/2024 7:41 PM T [facility] BACTERIA Rare None Seen, Rare, Few Bacteria/ HPF 10/02/2024 7:41 PM T [facility] EPITHELIAL CELLS None Seen None Seen, Few Epi/HPF 10/02/2024 7:41 PM T [facility] Urine URINE SPECIMEN / Unknown Non-Blood / Unknown 10/02/2024 7:13 PM CDT 10/02/2024 7:22 PM CDT Jay Jean MD URINE Fin al Result [facility] [address] [place] [address] * (ABNORMAL) UA W/ SEDIMENT EXAM REFLEXED PER CRITERIA (10/02/2024 7:13 PM CDT) COLOR Yellow Yellow Color 10/02/2024 7:35 PM CDT [facility] CLARITY Clear Clear Clarity 10/02/2024 7:[address] [facility] SPECIFIC GRAVITY,URINE 1.025 1.010, 1.015, 1.020, 1.025 10/02/2024 7:[address] [facility] PH,URINE 6.0 6.0, 7.0, 8.0, 5.5, 6.5, 7.5, 8.5 10/02/2024 7:[address] [facility] UROBILINOGEN, QUALITATIVE Normal Normal EU/dl 10/02/2024 7:[address] [facility] PROTEIN, URINE Negative Negative mg/dL 10/02/2024 7:[address] [facility] GLUCOSE, URINE Negative Negative mg/dL 10/02/2024 7:[address] [facility] KETONES,URINE 15(A) Negative mg/dL 10/02/2024 7:[address] [facility] BILIRUBIN,URI NE Negative Negative 10/02/2024 7:[address] [facility] OCCULT BLOOD,URINE Negative Negative 10/02/2024 7:[address] [facility] NITRITE Negative Negative 10/02/2024 7:[address] [facility] LEUKOCYTE ESTERASE Trace(A) Negative 10/02/2024 7:[address] [facility] Urine URINE SPECIMEN / Unknown Non-Blood / Unknown 10/02/2024 7:13 PM CDT 10/02/2024 7:22 PM CDT Jay Jean MD URINE Fin al Result Performing Organization Address City/[facility]/ZIP Co de Phone Number [facility] [address] [place] [address] * (ABNORMAL) URINE (10/02/2024 7:13 PM CDT) ,URIN E Positive(P ositive) Negative 10/02/2024 7:35 PM CDT [facility] Comment:Is Rh typing necessa ry? Urine URINE SPECIMEN / Unknown Non-Blood / Unknown 10/02/2024 7:13 PM CDT 10/02/2024 7:22 PM CDT Abdirahman KOHLI URINE Final Re sult Performing Organization Address [facility]/ZIP Co de Phone Number [facility] [address] [place] [address] * PEOPLE GREETER THIN PREP PAP SCREEN IMAGED (06/29/2022 9:54 AM CDT) Case Report Gynecologic Cytology Report Case: [id number] Authorizing Provider: Juan C Workman Collected: 06/29/2022 09Houston Winchester MD Ordering Location: [facility] Received: 06/29/2022 0954 Clinic First Screen: Selina Zuniga Specimen: PEOPLE GREETER ThinPrep Vial Screening, Cervical 07/24/2022 11:46 AM CDT [facility] INTERPRETATION/ RESULT NEGATIVE FOR INTRAEPITHELIAL LESION OR MALIGNANCY (NIL) (none) 07/24/2022 11:46 AM CDT [facility] at 1146 CDT SPECIMEN ADEQUACY Satisfactory for evaluation Endocervical component present 07/24/2022 11:46 AM CDT [facility] Date of LMP 06/23/2022 07/24/2022 11:46 AM CDT [facility] Last Pap Date 201707/24/2022 11:46 AM CDT [facility] Last Pap Result NIL 11:46 AM CDT [facility] Abnormal Pap or Cantril Bx in last 5 years No 07/24/2022 11:46 AM CDT [facility] Menstrual Status Regular Periods 07/24/2022 11:46 AM CDT [facility] Cantril Bx Done Today No 07/24/2022 11:46 AM CDT [facility] Additional Information None given 07/24/2022 11:46 AM CDT [facility] Comment: Cytology is screened at [facility] - [address], [place] [address] and [facility] - [address], [place] [address] and [facility] - [address] [place] [address] Interpreted at [facility] - [address], [place] [address] Automated Review Successful 07/24/2022 11:46 AM CDT [facility] Comment:Specimen processed s uccessfully by automated valet parking attendant device, ThinPrep Imaging System, [employer] Note The pap test is a [...] and malignant lesions. 07/24/2022 11:46 AM CDT [facility] Other (Cervical) Non-Blood / Unknown 06/29/2022 9:54 AM CDT 06/29/2022 9:54 AM CDT us Juan C Workman MD PATHOLOGY/CYTOLOG Y Final Result [facility] [address] [place] [address], [place] * GC CHLAMYDIA TRACH PROBE (06/29/2022 9:54 AM CDT) CHLAMYDIA PROBE Negative 8:53 PM CDT [facility] N GONORRHOEAE PROBE Negative 06/29/2022 8:53 PM CDT [facility] Other URINE SPECIMEN / Unknown Non-Blood / Unknown 06/29/2022 9:54 AM CDT 06/29/2022 9:54 AM CDT us Juan C Workman MD MICROBIOLOGY F inal Result [facility] [address] [place] [address], from Last 3 Months or Most Recently Relevant to Health Maintenance Insurance [facility] Care Teams Tree Climber Relationship Specialty Start Date End Date None . PCP - General 03/16/22
[2024-12-10 14:47] VITALS: BP 110/62; PULSE 114; RESP 18; TEMP 37; O2SAT 98; BMI 22.7
--- NOTE | 2024-12-10 16:57 | ED_ITS ---
HPI - General Adult General Date Seen: 12/10/24 Chief complaint: Fever Stated complaint: fever Time Seen by Provider: 12/10/24 15:55 Source: patient Mode of arrival: ambulatory Limitations: no limitations History of Present Illness HPI narrative: Patient is a 24-year-old female presenting to the emergency department for viral symptoms. She is currently 15 weeks . She states she has been doing with viral symptoms for the past few days but developed a fever today. She went to [facility] and workup was unremarkable but states they were unable to find heart tones so they were going to do an ultrasound. Before an ultrasound was done she was discharged. Since then she has been concerned about the baby because she was not told if there is a hear tbeat or not. Does states she has had some mild clear vaginal discharge. Has not had any vaginal bleeding. Denies headache, chest pain, shortness of breath, vision changes, weakness, numbness. States the only thing she is concerned about right now is to make sure the baby is okay and that is why she came to the emergency department Related Data Home Medications ?Medication ?Instructions ?Recorded ?Confirmed ZRZ-deaq-NS-omega 3 fatty no.1 27 cap PO 11/04/2411/18 mg-1 mg-300 mg capsule Allergies Allergy/AdvReac Type Severity Reaction Status Date / Time guanfacine Allergy Verified 12/02/24 18:22 Review of Systems Narrative: Pertinent systems reviewed and were negative unless stated in HPI PFSH PFSH Surgical History History of hysteroscopy ?Z98.890 - Other specified postprocedural states (ICD-10) History of laparoscopy ?Z98.890 - Other specified postprocedural states (ICD-10) Social History Narrative: SOCIAL HISTORY: Occupation: Daycare provider. Marital status: . Sabianism/cultural needs: no. Chemical or radiation exposure: no. Pre- tobacco use: Yes, social. Quit with positive UPT. Pre- alcohol use: Occasional. Current tobacco use: no. Current alcohol use:no. Recreational drug use: no. Dietary restrictions: no. Blood transfusion acceptable in an emergency: no. PSYCHOSOCIAL HISTORY: History of depression or currently depressed: yes. Current physical, or past emotional, or sexual mistreatment: Denies. Problems that will make it hard to make it to appointments: Denies. What is your current living situation?: I presently have a place to live Problems where you live: declined to answer In the past 12 months, utilities in danger of being shut off: yes In the past 12 mos, have been you worried that your food would run out before you had money to buy more?: never true In the past 12 mos, the food you bought just didn't last and you didn't have money to buy more?: never true Smoking Status: Never smoker Do you use any of these nicotine containing products: None Second hand tobacco smoke exposure: No How often do you have a drink containing alcohol: never How often do you have six or more drinks on one occasion: Never AUDIT-C Alcohol total score: 0 Non-prescribed substance use: denies use How often does anyone, including family, friends and others, physically hurt you : never How often does anyone, including family, friends and others, insult or talk down to you: never How often does anyone, including family, friends and others, threaten you with harm: never How often does anyone, including family, friends and others, scream or curse at you: never service: No Exam Narrative: Exam Narrative: Const: Well-nourished, Well-developed, in no distress Eyes: PERRL, no conjunctival injection, and symmetrical lids HENT: Atraumatic external nose and ears. Moist mucous membranes. MSK:Extremities w/o deformity, Normal Active ROM Skin: Warm, Dry. No rashes or lesions. Neuro: Normal Muscle tone, No focal neurological deficits. Psych: Awake, Alert, & Oriented x3. Appropriate mood and affect. Const: Vital Signs, click to edit/add: Vital Signs - 24 hr 12/10/24 14:47 Temperature 98.6 F Pulse Rate [Right Pulse Oximeter] 114 H Respiratory Rate 18 Blood Pressure [Ri ght Upper Arm] 110/62 Pulse Oximetry 98 Oxygen Delivery Me thod Room Air Course Vital Signs Vital signs: Initial Vital Signs Temperature 98.6 F 12/10/24 14:47 Temperature Source Temporal Artery Scan 12/10/24 14:47 Pulse Rate 114 H 12/10/24 14:47 Respiratory Rate 18 12/10/24 14:47 Blood Pressure 110/62 12/10/24 14:47 Blood Pressure Mean 78 12/10/24 14:47 Blood Pressure Position Sitting 12/10/24 14:47 Pulse Oximetry 98 12/10/24 14:47 Oxygen Delivery Method Room Air 12/10/24 14:47 Vital Signs Temperature 98.6 F 12/10/24 14:47 Pulse Rate 114 H 12/10/24 14:47 Respiratory Rate 18 12/10/24 14:47 Blood Pressure 110/62 12/10/24 14:47 Pulse Oximetry 98 12/10/24 14:47 Oxygen Delivery Method Room Air 12/10/24 14:47 Temperature 98.6 F 12/10/24 14:47 Pulse Rate 114 H 12/10/24 14:47 Respiratory Rate 18 12/10/24 14:47 Blood Pressure 110/62 12/10/24 14:47 Pulse Oximetry 98 12/10/24 14:47 Oxygen Delivery Method Room Air 12/10/24 14:47 Medical Decision Making [facility] Narrative Medical decision making narrative: Patient is a 24-year-old female presenting for concerns about her . She did states she has fevers at home but she states the been viral and does not want further workup on that. She does wants an ultrasound done to show that her baby is doing okay. I did a bedside ultrasound showing a strong heartbeat and I could see the baby moving. I showed the patient he ultrasounds so she could visualize it to. heart tones were 163. She feels much better now and feels comfortable with discharge. Discharge Plan Discharge Clinical Impression: Viral upper respiratory infection Patient Disposition: Home, Self-Care Condition: Stable Instructions: Upper Respiratory Infection (ED) Additional Instructions: You likely have a virus. Bedside ultrasound done by myself does show the baby is moving appropriately and has a heartbeat. Please return for new or worsening symptoms. If you develops significant vaginal bleeding please come back for re-evaluation. Prescriptions: No Action BHA-judp-QY-omega 3 fatty no.1 27-1-300 mg capsule PO Follow Up/Referrals: Provider,Not a Local [Primary Care Provider, Family Practice] Stand Alone Forms: [employer] Info Instructions
== END 2024-12-10 17:35 | disposition home or self-care (01) ==
LOC: ED 17:08
PROVIDERS: Emergency Provider Student in an Organized Health Care Education/Training Program
DX: J06.9 Acute upper respiratory infection, unspecified (principal); Z3A.15 15 weeks gestation of pregnancy
CPT/HCPCS: 99281; 99283

== ENCOUNTER 2025-01-06 23:34 | Emergency (ER) | payer BC, SELFPAY ==
--- OUTSIDE RECORDS SUMMARY | 2025-01-06 23:37 | XMS_ITS | Clinical Summary ---
Author Organization [facility] Address [address] [place] [address] Care Team Providers Care Motor Polarizer Name Role Phone None Primary Care Provider [...] Breath 1st choice. 1 Each 4 Active albuterol HFA (PRO-AIR; VENTOLIN; PROVENTIL) 90 mcg/actuation inhalerIndications :Cough, unspecified type Inhale 1-2 Puffs by mouth every 4 hours if needed for Shortness Of Breath or Wheezing. 1 Each 4 Active [id number] ACID-OM3 ORAL Take by mouth. Active hydrOXYzine HCL (ATARAX) 10 mg tabletIndications: ERON (generalized anxiety disorder) Take 1 Tablet (10 mg) by mouth every 8 hours if needed for Anxiety (sleep). 60 Tablet 2 5 Active escitalopram oxalate (Lexapro) 5 mg tabletIndications: ERON (generalized anxiety disorder) Take 1 Tablet (5 mg) by mouth once daily. 30 Tablet 1 5 Active ondansetron (ZOFRAN ODT) 4 mg disintegrating tabletIndications: Viral URI with cough Place 1 Tablet (4 mg) on the tongue every 8 hours if needed for Nausea/Vomiti ng. 10 Tablet 5 Active Active Problems Problem Noted [...] CDT - 12/10/2024 1:37 PM CDT Emergency [facility] [address] [place] [address] Jonel Negrete MD Viral URI with cough (Primary Dx); as incidental finding (HC) Discharge Disposition: Home Self Care 12/10/2024 Travel 12/03/2024 8:45 AM CDT Office Visit [facility] [address] [place] [address] Carlyn Villafuerte NP Follow Up; Medication Management 12/02/2024 Travel from Last 3 Months Immunizations Immunization Administration Dates Next Due DTaP 2000,2000,2000 DXdZ-FkcQ-IHV (Pediarix) 10/17/2005 HIB-HepB (Comvax) 2000,2000 HPV 9 [...] Used Date Smoking Tobacco: Former Cigarettes 0.3 1.1 S tarted: 12/15/2023 Passive Smoke Exposure: Yes [...] on file 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 Gender Identity Not on file Sexual Orientation Not on file 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 Not on file Not [...] 12/10/2024 11:59 AM CDT Plan of Treatment Health Maintenance Due Date Last Done Comments HIV for age 15-65 01/18/2015 Hepatitis C screening for age 18-79 01/18/2018 Tetanus booster 11/12/2022 11/12/2012 Chlamydia for age 16-24 06/30/2023 06/30/19, 02/20/2018 (Verified in Care Everywhere or Patient Record) COVID-19 vaccine series ( season) 2024 Influenza Vaccine (#1) 2024 BMI [...] MOLECULAR Today 12/10/2024 12 :02 PM CDT GC CHLAMYDIA TRACH PROBE Routine 06/29/2022 9:54 AM CDT Screening for STD (sexually transmitted disease) EVENT PLANNING INTERN THIN PREP PAP SCREEN IMAGED Routine 06/29/2022 9:54 AM CDT Screening for cervical cancer from Last 3 Months or Most Recently Relevant to Health Maintenance Results * COVID-19 MOLECULAR (12/10/2024 12:02 PM CDT) COVID 19 MERCEDES MOLECULAR Not detected Not detected 12/10/2024 12:30 PM CDT [facility] TESTING LABORATORY [facility] 12/10/2024 12:30 PM CDT [facility] Comment:Specimen submitted t o [facility] for testing. Other SPECIMEN FROM NASOPHARYNGEAL STRUCTURE / Unknown Non-Blood / Unknown 12/10/2024 12:02 PM CDT 12/10/2024 12:07 PM CDT Jonel Negrete MD MICROBIOLOGY Final R esult Performing Organization Address City/[facility]/ZIP Co de Phone Number [facility] [address] [place] [address] * INFLUENZA A/B PCR (12/10/2024 12:02 PM CDT) INFLUENZA A PCR NOT Detected 12/10/2024 12:30 PM CDT [facility] INFLUENZA B PCR NOT Detected 12/10/2024 12:30 PM CDT [facility] Other SPECIMEN FROM NASOPHARYNGEAL STRUCTURE / Unknown Non-Blood / Unknown 12/10/2024 12:02 PM CDT 12/10/2024 12:07 PM CDT Jonel Negrete MD MICROBIOLOGY Final R esult Performing Organization Address City/[facility]/ZIP Co de Phone Number [facility] [address] [place] [address] * EVENT PLANNING INTERN THIN PREP PAP SCREEN IMAGED (06/29/2022 9:54 AM CDT) Case Report Gynecologic Cytology Report Case: [id number] Authorizing Provider: Juan C Workman Collected: 06/29/2022 0954 MD Annabella Ordering Location: [facility] Received: 06/29/2022 09 Clinic First Screen: Selina Zuniga Specimen: EVENT PLANNING INTERN ThinPrep Vial Screening, Cervical 07/24/2022 11:46 AM CDT [facility] INTERPRETATION/ RESULT NEGATIVE FOR INTRAEPITHELIAL LESION OR MALIGNANCY (NIL) (none) 07/24/2022 11:46 AM CDT [facility] at 1146 CDT SPECIMEN ADEQUACY Satisfactory for evaluation Endocervical component present 07/24/2022 11:46 AM CDT [facility] ENTRAL LABORATORY Date of LMP 06/23/2022 07/24/2022 11:46 AM CDT [facility] Last Pap Date 2018 07/24/2022 11:46 AM CDT [facility] Last Pap Result NIL 11:46 AM CDT [facility] Abnormal Pap or [place] Bx in last 5 years No 07/24/2022 11:46 AM CDT [facility] Menstrual Status Regular Periods 07/24/2022 11:46 AM CDT [facility] [place] Bx Done Today No 07/24/2022 11:46 AM CDT [facility] Additional Information None given 07/24/2022 11:46 AM CDT [facility] Comment: Cytology is screened at [facility] - [address], [place] [address] and [facility] - [address], [place] [address] and [facility] - [address] [place] [address] [facility] - [address], [place] [address] Automated Review Successful 07/24/2022 11:46 AM CDT [facility] Comment:Specimen processed s uccessfully by automated ex assistant/program director device, ThinPrep Imaging System, [employer] Note The pap test is a [...] and malignant lesions. 07/24/2022 11:46 AM CDT [facility] Other (Cervical) Non-Blood / Unknown 06/29/2022 9:54 AM CDT 06/29/2022 9:54 AM CDT Juan C Workman MD PATHOLOGY/CYTOLOG Y Final Result [facility] [address] [place] [address], [place] * GC CHLAMYDIA TRACH PROBE (06/29/2022 9:54 AM CDT) CHLAMYDIA PROBE Negative 8:53 PM CDT [facility] N GONORRHOEAE PROBE Negative 06/29/2022 8:53 PM CDT [facility] TR[facility] LAB[facility]AT[facility] Other URINE SPECIMEN / Unknown Non-Blood / Unknown 06/29/2022 9:54 AM CDT 06/29/2022 9:54 AM CDT us Juan C Workman MD MICROBIOLOGY F inal Result [facility] [address] [place] [address], [place] from Last 3 Months or Most Recently Relevant to Health Maintenance Insurance [facility] Care Teams Motor Polarizer Relationship Specialty Start Date End Date None . PCP - General 03/16/22
[2025-01-06 23:49] VITALS: BP 108/66; PULSE 71; RESP 16; TEMP 36.6; O2SAT 98; BMI 23.2
--- NOTE | 2025-01-07 00:04 | ED.GENADULT ---
HPI - General Adult General Chief complaint: Unspecified Complaint, Adult <Urvashi Bernstein MD - Last Filed: 01/07/25 00:23> Stated complaint: 19 wks preg/vaginal d/c <Urvashi Bernstein MD - Last Filed: 01/07/25 00:23> Time Seen by Provider: 01/06/25 23:48 <Urvashi Bernstein MD - Last Filed: 01/07/25 00:23> Source: patient <rUvashi Bernstein MD - Last Filed: 01/07/25 00:23> Mode of arrival: ambulatory <Urvashi Bernstein MD - Last Filed: 01/07/25 00:23> Limitations: no limitations <Urvashi Bernstein MD - Last Filed: 01/07/25 00:23> History of Present Illness HPI narrative: 24-year-old female, at approximately 19 weeks gestation presenting today with pink vaginal discharge x1 when she wiped before bedtime. Patient states that she has not felt the baby moving 2 days. Denies abnormal cramping or pain. No fevers, chills, nausea or vomiting. Patient has 1 sexual partner. Denies other vaginal discharge or strange odors. No pain with urination. No increased urinary frequency or urgency. <Urvashi Bernstein MD - Last Filed: 01/07/25 00:23> Related Data Home medications: Home Medications ?Medication ?Instructions ?Recorded ?Confirmed DPC-hqiu-TK-omega 3 fatty no.1 27 cap PO 11/04/24 12/30/24 mg-1 mg-300 mg capsule escitalopram oxalate 5 mg tablet 5 mg PO DAILY 12/30/24 12/30/24 hydroxyzine HCl 10 mg tablet 10 mg PO 3XD 12/30/24 12/30/24 ondansetron 4 mg disintegrating 4 mg PO Q8H PRN 12/30/24 12/30/24 tablet <Urvashi Bernstein MD - Last Filed: 01/07/25 00:23> Allergies/adverse reactions: Allergies Allergy/AdvReac Type Severity Reaction Status Date / Time guanfacine Allergy Verified 12/30/24 18:43 <Urvashi Bernstein MD - Last Filed: 01/07/25 00:23> Review of Systems Status of ROS: Reports: 6 or more systems reviewed and unremarkable except as noted in History and below <Urvashi Bernstein MD - Last Filed: 01/07/25 00:23> [facility] Surgical History: Surgical History History of hysteroscopy ?Z98.890 - Other specified postprocedural states (ICD-10) History of laparoscopy ?Z98.890 - Other specified postprocedural states (ICD-10) <Urvashi Bernstein MD - Last Filed: 01/07/25 00:23> Social History: Social History Narrative: SOCIAL HISTORY: Occupation: Daycare provider. Marital status: . Lutheran/cultural needs: no. Chemical or radiation exposure: no. Pre- tobacco use: Yes, social. Quit with positive UPT. Pre- alcohol use: Occasional. Current tobacco use: no. Current alcohol use:no. Recreational drug use: no. Dietary restrictions: no. Blood transfusion acceptable in an emergency: no. PSYCHOSOCIAL HISTORY: History of depression or currently depressed: yes. Current physical, or past emotional, or sexual mistreatment: Denies. Problems that will make it hard to make it to appointments: Denies. What is your current living situation?: I presently have a place to live Problems where you live: declined to answer In the past 12 months, utilities in danger of being shut off: yes In the past 12 mos, have been you worried that your food would run out before you had money to buy more?: never true In the past 12 mos, the food you bought just didn't last and you didn't have money to buy more?: never true Smoking Status: Never smoker Do you use any of these nicotine containing products: None Second hand tobacco smoke exposure: No How often do you have a drink containing alcohol: never How often do you have six or more drinks on one occasion: Never AUDIT-C Alcohol total score: 0 Non-prescribed substance use: denies use How often does anyone, including family, friends and others, physically hurt you: never How often does anyone, including family, friends and others, insult or talk down to you: never How often does anyone, including family, friends and others, threaten you with harm: never How often does anyone, including family, friends and others, scream or curse at you: never service: No <Urvashi Bernstein MD - Last Filed: 01/07/25 00:23> Exam Narrative: Exam Narrative: Well-nourished well-developed patient in no acute distress. Alert and oriented. Answers questions appropriately. Mood and affect are appropriate. Thoughts are goal oriented and rational. No tangential or magical thinking noted. Patient speaks in full sentences without needing to catch her breath. HEENT: Normocephalic atraumatic. Pupils are equally round reactive to light. Extraocular muscles are intact. Conjunctivae are moist without any icterus noted. Moist mucous membranes. Cardiovascular: Heart is regular rate and rhythm S1 and S2 are present without any murmurs. Lungs: Clear to auscultation bilaterally no wheezes rhonchi or rales are appreciated. Abdomen: Soft and nontender nondistended with normal bowel sounds. Delete the Extremities: Bilateral lower extremities are without edema. Skin: Well perfused. <Urvashi Bernstein MD - Last Filed: 01/07/25 00:23> Const: Vital Signs, click to edit/add: Vital Signs - 24 hr 01/06/25 23:49 Temperature 97.9 F Pulse Rate [Left P ulse Oximeter] 71 Respiratory Rate 16 Blood Pressure [Ri ght Upper Arm] 108/66 Pulse Oximetry 98 Oxygen Delivery Me thod Room Air <Urvashi Bernstein MD - Last Filed: 01/07/25 00:23> Vital Signs, click to edit/add: Vital Signs - 24 hr 01/06/25 23:49 Temperature 97.9 F Pulse Rate [Left P ulse Oximeter] 71 Respiratory Rate 16 Blood Pressure [Ri ght Upper Arm] 108/66 Pulse Oximetry 98 Oxygen Delivery Me thod Room Air <Urvashi Tatum MD - Last Filed: 01/07/25 00:21> Course Course ED Course: Dr. Ray was able to do a limited ultrasound showing a single live intrauterine with a heartbeat in the 120s to 130s. <Urvashi Bernstein MD - Last Filed: 01/07/25 00:23> Vital Signs Vital signs: Initial Vital Signs Temperature 97.9 F 01/06/25 23:49 Temperature Source Temporal Artery Scan 01/06/25 23:49 Pulse Rate 71 01/06/25 23:49 Respiratory Rate 16 01/06/25 23:49 Blood Pressure 108/66 01/06/25 23:49 Blood Pressure Mean 80 01/06/25 23:49 Blood Pressure Position Sitting 01/06/25 23:49 Pulse Oximetry 98 01/06/25 23:49 Oxygen Delivery Method Room Air 01/06/25 23:49 Vital Signs Temperature 97.9 F 01/06/25 23:49 Pulse Rate 71 01/06/25 23:49 Respiratory Rate 16 01/06/25 23:49 Blood Pressure 108/66 01/06/25 23:49 Pulse Oximetry 98 01/06/25 23:49 Oxygen Delivery Method Room Air 01/06/25 23:49 Temperature 97.9 F 01/06/25 23:49 Pulse Rate 71 01/06/25 23:49 Respiratory Rate 16 01/06/25 23:49 Blood Pressure 108/66 01/06/25 23:49 Pulse Oximetry 98 01/06/25 23:49 Oxygen Delivery Method Room Air 01/06/25 23:49 <Urvashi Bernstein MD - Last Filed: 01/07/25 00:23> Initial Vital Signs Temperature 97.9 F 01/06/25 23:49 Temperature Source Temporal Artery Scan 01/06/25 23:49 Pulse Rate 71 01/06/25 23:49 Respiratory Rate 16 01/06/25 23:49 Blood Pressure 108/66 01/06/25 23:49 Blood Pressure Mean 80 01/06/25 23:49 Blood Pressure Position Sitting 01/06/25 23:49 Pulse Oximetry 98 01/06/25 23:49 Oxygen Delivery Method Room Air 01/06/25 23:49 Vital Signs Temperature 97.9 F 01/06/25 23:49 Pulse Rate 71 01/06/25 23:49 Respiratory Rate 16 01/06/25 23:49 Blood Pressure 108/66 01/06/25 23:49 Pulse Oximetry 98 01/06/25 23:49 Oxygen Delivery Method Room Air 01/06/25 23:49 Temperature 97.9 F 01/06/25 23:49 Pulse Rate 71 01/06/25 23:49 Respiratory Rate 16 01/06/25 23:49 Blood Pressure 108/66 01/06/25 23:49 Pulse Oximetry 98 01/06/25 23:49 Oxygen Delivery Method Room Air 01/06/25 23:49 <Urvashi Tatum MD - Last Filed: 01/07/25 00:21> Medical Decision Making MDM Narrative Medical decision making narrative: 24-year-old female with 1 episode of pink vaginal discharge. We discussed that this is a limited ultrasound we were able to do after hours in the ER. But baby looks alive and well. Recommend follow-up with OBGYN as scheduled. <Urvashi Bernstein MD - Last Filed: 01/07/25 00:23> Discharge Plan Discharge Clinical Impression: , Vaginal discharge <Urvashi Bernstein MD - Last Filed: 01/07/25 00:23> Patient Disposition: Home, Self-Care <Urvashi Bernstein MD - Last Filed: 01/07/25 00:23> Condition: Stable <Urvashi Bernstein MD - Last Filed: 01/07/25 00:23> Additional Instructions: Follow-up with OBGYN as needed. <Urvashi Bernstein MD - Last Filed: 01/07/25 00:23> Prescriptions: No Action YWE-crmz-CE-omega 3 fatty no.1 27-1-300 mg capsule PO hydroxyzine HCl 10 mg tablet 10 mg PO 3XD ondansetron 4 mg tablet,disintegrating 4 mg PO Q8H PRN escitalopram oxalate 5 mg tablet 5 mg PO DAILY <Urvashi Bernstein MD - Last Filed: 01/07/25 00:23> Follow Up/Referrals: Provider,Not a Local [Primary Care Provider, Family Practice] <Urvashi Bernstein MD - Last Filed: 01/07/25 00:23> Stand Alone Forms: [employer] Info Instructions <Urvashi Bernstein MD - Last Filed: 01/07/25 00:23> Procedures POC Ultrasound Other Anatomical areas examined: Limited obstetrical ultrasound <Urvashi Tatum MD - Last Filed: 01/07/25 00:21> Indications: Complain of lack of movement <Urvashi Tatum MD - Last Filed: 01/07/25 00:21> Description/findings: Fetus had obvious movement and appropriate cardiac activity. There appeared to be adequate cervical length without any significant funneling, placenta did not show any gross abnormalities. This baby was actively moving. Patient was reassured. Deferred formal ultrasound at this time, patient is advised to follow-up with her manufacturing maintenance manager. She does understand that this is a limited survey but certainly appears reassuring. <Urvashi Tatum MD - Last Filed: 01/07/25 00:21> Impression: Normal movement and gross survey of the fetus, placenta and cervix. <Urvashi Tatum MD - Last Filed: 01/07/25 00:21>
--- OUTSIDE RECORDS SUMMARY | 2025-01-07 00:17 | XMS_ITS | Clinical Summary ---
Author Organization [facility] Address [address] [place] [id number] Care Team Providers Care Vice President Of Sales Name Role Phone None Primary Care Provider [...] Breath or Wheezing. 1 Each 4 Active 9-GFLD-[id number] ACID-OM3 ORAL Take by mouth. Active hydrOXYzine [...] CDT - 12/10/2024 1:37 PM CDT Emergency [facility] [address] [place] [address] Jonel Negrete MD Viral URI with cough (Primary Dx); as incidental finding (HC) Discharge Disposition: Home Self Care 12/10/2024 Travel 12/03/2024 8:45 AM CDT Office Visit [facility] [address] [place] [address] Carlyn Villafuerte NP Follow Up; Medication Management 12/02/2024 Travel from Last 3 Months Immunizations Immunization Administration Dates Next Due DTaP 2000,2000,2000 AEqM-HqqJ-DPC (Pediarix) 10/17/2005 HIB-HepB (Comvax) 2000,2000 HPV 9 [...] on file 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 Gender Identity Not on file Sexual Orientation Not on file 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 file Not [...] CDT Screening for STD (sexually transmitted disease) MVA REACTOR OPERATOR THIN PREP PAP SCREEN IMAGED Routine 06/29/2022 9:54 AM CDT Screening for cervical cancer from Last 3 Months or Most Recently Relevant to Health Maintenance Results * COVID-19 MOLECULAR (12/10/2024 12:02 PM CDT) COVID 19 MERCEDES MOLECULAR Not detected Not detected 12/10/2024 12:30 PM CDT [facility] TESTING LABORATORY [facility] 12/10/2024 12:30 PM CDT [facility] Comment:Specimen submitted t o [facility] for testing. Other SPECIMEN FROM NASOPHARYNGEAL STRUCTURE / Unknown Non-Blood / Unknown 12/10/2024 12:02 PM CDT 12/10/2024 12:07 PM CDT Jonel Negrete MD MICROBIOLOGY Final R esult Performing Organization Address City/[facility]/ZIP Co de Phone Number [facility] [address] [place] [address] * INFLUENZA A/B PCR (12/10/2024 12:02 PM CDT) INFLUENZA A PCR NOT Detected 12/10/2024 12:30 PM CDT [facility] INFLUENZA B PCR NOT Detected 12/10/2024 12:30 PM CDT [facility] Other SPECIMEN FROM NASOPHARYNGEAL STRUCTURE / Unknown Non-Blood / Unknown 12/10/2024 12:02 PM CDT 12/10/2024 12:07 PM CDT Jonel Negrete MD MICROBIOLOGY Final R esult Performing Organization Address City/[facility]/ZIP Co de Phone Number [facility] [address] [place] [address] * MVA REACTOR OPERATOR THIN PREP PAP SCREEN IMAGED (06/29/2022 9:54 AM CDT) Case Report Gynecologic Cytology Report Case: [id number] Authorizing Provider: Juan C Workman Collected: 06/29/2022 0954 MD Annabella Ordering Location: [facility] Received: 06/29/2022 09 Clinic First Screen: Selina Zuniga Specimen: MVA REACTOR OPERATOR ThinPrep Vial Screening, Cervical 07/24/2022 11:46 AM CDT [facility] INTERPRETATION/ RESULT NEGATIVE FOR INTRAEPITHELIAL LESION OR MALIGNANCY (NIL) (none) 07/24/2022 11:46 AM CDT [facility] at 1146 CDT SPECIMEN ADEQUACY Satisfactory for evaluation Endocervical component present 07/24/2022 11:46 AM CDT [facility] Date of LMP 06/23/2022 07/24/2022 11:46 AM CDT [facility] Last Pap Date 2018 07/24/2022 11:46 AM CDT [facility] Last Pap Result NIL 11:46 AM CDT [facility] Abnormal Pap or [place] Bx in last 5 years No 07/24/2022 11:46 AM CDT [facility] Menstrual Status Regular Periods 07/24/2022 11:46 AM [facility]T [facility] [place] Bx Done Today No 07/24/2022 11:46 AM CDT [facility] Additional Information None given 07/24/2022 11:46 AM CDT [facility] Comment: Cytology is screened at [facility] - [address], [place] [address] and [facility] - [address], [place] [address] and [facility] - [address] [place] [address] Interpreted at [facility] - [address], [place] [address] Automated Review Successful 07/24/2022 11:46 AM CDT [facility] Comment:Specimen processed s uccessfully by automated baggagemaster device, ThinPrep Imaging System, [employer] Note The pap test is a [...] AM CDT [facility] Other (Cervical) Non-Blood / Unknown 06/29/2022 9:54 AM CDT 06/29/2022 9:54 AM CDT Juan C Workman MD PATHOLOGY/CYTOLOG Y Final Result [facility] [address] [place] [address], [place] * GC CHLAMYDIA TRACH PROBE (06/29/2022 9:54 AM CDT) CHLAMYDIA PROBE Negative 8:53 PM CDT [facility] N GONORRHOEAE PROBE Negative 06/29/2022 8:53 PM CDT [facility] TRAL LABORAT[facility] Other URINE SPECIMEN / Unknown Non-Blood / Unknown 06/29/2022 9:54 AM CDT 06/29/2022 9:54 AM CDT us Juan C Workman MD MICROBIOLOGY F inal Result [facility] [address] [place] [address], [place] from Last 3 Months or Most Recently Relevant to Health Maintenance Insurance [facility] Care Teams Vice President Of Sales Relationship Specialty Start Date End Date None . PCP - General 03/16/22
== END 2025-01-07 00:38 | disposition home or self-care (01) ==
PROVIDERS: Emergency Provider Family Medicine
DX: O36.8120 Decreased fetal movements, second trimester, not applicable or unspecified (principal); Z3A.19 19 weeks gestation of pregnancy
CPT/HCPCS: 76815; 99283; 99284

== ENCOUNTER 2025-01-13 15:52 | Outpatient (CLI) | payer BC, SELFPAY ==
--- NOTE | 2025-01-13 15:45 | CRLHL7_ITS ---
For Patients: As a result of the Century Cures Act, medical imaging exams and procedure reports are released immediately into your electronic medical record. You may view this report before your referring provider. If you have questions, please contact your health care provider. OB ULTRASOUND GREATER THAN 14 WEEKS CLINICAL HISTORY: anatomy survey. TECHNIQUE: Real time earl scale imaging of the fetus was performed. Transabdominal imaging performed. COMPARISON: 10/22/2024. FINDINGS: LMP: 08/27/2024. ANTONY by LMP: 06/03/2025. GA: 19 weeks 6 days. Position: Vertex. Cervix: Visualized. Technique: TA. Length of closed cervix: 3.5 cm. Placenta/Cord: Placenta Position: Posterior. Placenta tip to internal OS: 5.2 cm. Umbilical Cord: 3 vessel cord. Placenta Insertion: Central. Amniotic Fluid: 4.3 cm SDP. OBSERVED STRUCTURES: Calvarium/Spine: Cerebellum: 1.95 cm, 20 weeks 0 days Cisterna Magna: 3.7 mm Nuchal Fold: 3.3 mm Lateral Ventricles: 6.4 mm CSP Choroid Plexus Midline Falx Spine Abdomen: Stomach Abd Cord Insert Urinary Bladder Kidneys Diaphragm Face: Orbital View Limbs: Upper Extremities Lower Extremities Hand Vascular: 3VV BIOMETRY BPD: 4.66 cm, 20 weeks 1 day. 60.0% HC: 17.05 cm, 19 weeks 5 days. 32.5% AC: 14.33 cm, 19 weeks 5 days. 38.1% FL: 3.18 cm, 19 weeks 6 days. 43.6% FL/AC: 22.19% HC/AC Ratio: 1.19. Heart Rate: 142 bpm. Age by this US: 19 weeks 6 days. ANTONY by this US: 06/03/2025. EFW: 312.23 grams, 0 lbs 11 oz. Percentile by ANTONY: 40.5% IMPRESSION: 1. Concordance of clinical and sonographic dating. 2. Incomplete visualization of the nose, lips, profile and heart. Remainder of the anatomic survey is normal. Short-term follow-up recommended. Eran Meadows M.D. Diagnostic Radiologist [employer] [email or web address] Transcribed: 9:59 am DW/Dictated by: Eran Meadows MD @ 01/14/2025 7:47:00 AM (Electronically Signed)
== END 2025-01-13 15:53 | disposition home or self-care (01) ==
LOC: US 15:52
PROVIDERS: Visit Provider Physician Assistant
DX: O35.AXX0 Maternal care for other (suspected) fetal abnormality and damage, fetal facial anomalies, not applicable or unspecified (principal); Z3A.19 19 weeks gestation of pregnancy
CPT/HCPCS: 76805

== ENCOUNTER 2025-01-27 08:09 | Outpatient (CLI) | payer BC, SELFPAY ==
--- NOTE | 2025-01-27 08:15 | CRLHL7_ITS ---
For Patients: As a result of the Century Cures Act, medical imaging exams and procedure reports are released immediately into your electronic medical record. You may view this report before your referring provider. If you have questions, please contact your health care provider. INDICATION: Missing views (nose/lips, profile, heart, feet). (Sic) Incomplete survey. From the report of the recent prior examination dated 01/13/2025: ... Incomplete visualization of the nose, lips, profile and heart. Remainder of the anatomic survey is normal. Short-term follow-up recommended. COMPARISON: 01/13/2025 TECHNIQUE: Grayscale pelvic ultrasound via a transabdominal approach. FINDINGS: number: 1 Position: Cephalic. Placental Position: Posterior. Amniotic fluid: DVP 3.2cm. heart rate: 141bpm. Focused evaluation anatomy: Head and Neck Upper lip: Seen. Profile: Seen. Nasal bone measures 7 mm. Limited evaluation the chin on the profile view. Please note that documentation of the needle profile is not a acquired component of the routine 2nd trimester survey per the 2018 SYIA-TFO-JBJV-SMFM-SRU Practice Parameter for the performance of standard diagnostic ultrasound examinations (reference: https://onlinelibrary.[place].com/doi/10.1002/jum.32519). Chest Cardiac axis: Seen. 4 Chamber view: Seen. LVOT: Seen. RVOT: Seen. 3VV: Seen. Limbs Feet: Seen. IMPRESSION: Normal focused documentation of the upper lip, heart and feet per the 2018 ALVS-TVT-SSIT-SMFM-SRU Practice Parameter for the performance of standard obstetrical ultrasound. Dictated by Joshua Sweeney MD @ 01/27/2025 11:26:12 AM (Electronically Signed)
== END 2025-01-27 08:10 | disposition home or self-care (01) ==
LOC: US 08:09
PROVIDERS: Visit Provider Physician Assistant
DX: O35.AXX0 Maternal care for other (suspected) fetal abnormality and damage, fetal facial anomalies, not applicable or unspecified (principal); O35.BXX0 Maternal care for other (suspected) fetal abnormality and damage, fetal cardiac anomalies, not applicable or unspecified; O35.HXX0 Maternal care for other (suspected) fetal abnormality and damage, fetal lower extremities anomalies, not applicable or unspecified
CPT/HCPCS: 76816

== ENCOUNTER 2025-02-23 15:24 | Outpatient (CLI) | payer BC, SELFPAY ==
[2025-02-23 15:51] VITALS: BP 110/67; PULSE 83
[2025-02-23 15:57] VITALS: PULSE 81; O2SAT 98
[2025-02-23 16:16] LABS: Amnisure Rom* Negative
--- NOTE | 2025-02-23 17:25 | CRLHL7_ITS ---
For Patients: As a result of the Century Cures Act, medical imaging exams and procedure reports are released immediately into your electronic medical record. You may view this report before your referring provider. If you have questions, please contact your health care provider. INDICATION: Contractions and leaking fluid TECHNIQUE: Ultrasound OB pelvis transabdominal. Real-time earl-scale imaging of the fetus was performed as well as color Doppler and spectral Doppler analysis of the umbilical artery. COMPARISON: OB ultrasound 01/27/2025 FINDINGS: Sonographic imaging demonstrates a single living intrauterine gestation. Fetus demonstrates a regular cardiac rate of 141 beats per minute. Fetus has a cephalic orientation. Amniotic fluid volume appears normal with an SDP of 6.9 cm. Posterior placenta. Closed cervix, normal in length measuring 4.0 cm. IMPRESSION.: Viable intrauterine . No abnormalities seen. Normal amniotic fluid volume and cervical length. Dictated by Lacho Corley MD @ 02/23/2025 7:02:03 PM (Electronically Signed)
[2025-02-23 17:45] LABS: Bacterial Vaginosis* Negative (Negative); Candida glab/krus NOT DETECTED (No Detected)
[2025-02-23 18:48] VITALS: BP 101/61; PULSE 75; RESP 16; TEMP 36.9
[2025-02-23 18:48] LABS: Appearance Urine Turbid (Clear)
--- NOTE | 2025-02-23 20:49 | PC.OBNST ---
NST Note NST Note Start: 02/23/25 15:40 Freq: ONCE Status: Active Protocol: Document 02/23/25 18:48 WMK (Rec: 02/23/25 20:49 WMK No Response) NST Note 3 Para (# of births) 1 EDC 06/03/25 Gestational Age In 25 Weeks & 5 Days Weeks & Days Patient Presented Contractions/cramping with Complaint(s) of Appropriate for Yes Gestational Age RN Stephane RNC Date 02/23/25 Appropriate for Yes Gestational Age ABIGAIL Niño RN Date 02/23/25 OB NST charge Yes Complete NST Note Yes via Write Note The provider's electronic signature indicates the NST is reactive/appropriate for gestational age. *Note to provider: If an addendum is required, open the patient's chart and click on the note under the Nurse/Allied Health tab.
== END 2025-02-23 19:08 | disposition home or self-care (01) ==
LOC: OB OUT 15:25 → OB 15:28
PROVIDERS: Visit Provider Obstetrics & Gynecology
DX: O47.02 False labor before 37 completed weeks of gestation, second trimester (principal); Z3A.25 25 weeks gestation of pregnancy
CPT/HCPCS: 59025; 76815; 81001; 81003; 81513; 84112; 87086; 87481; 87661; G0463

== ENCOUNTER 2025-02-27 09:48 | Outpatient (CLI) | payer BC, SELFPAY ==
[2025-02-27 10:00] VITALS: RESP 18; TEMP 36.8
[2025-02-27 10:01] VITALS: PULSE 124; O2SAT 98
[2025-02-27 10:06] VITALS: BP 95/56; PULSE 112
[2025-02-27] MEDS: LACTATED RINGERS 1000 ML 1,000 ML IV (11:04)
[2025-02-27] MEDS: ONDANSETRON 2 MG/ML inj 4 MG IVP (11:05)
[2025-02-27] MEDS: LOPERAMIDE HCL 2 MG CAPSULE 4 MG PO (11:48)
--- NOTE | 2025-02-27 17:50 | PC.OBNST ---
NST Note NST Note Start: 02/27/25 09:56 Freq: ONCE Status: Active Protocol: Document 02/27/25 12:25 WMK (Rec: 02/27/25 17:48 WMK No Response) NST Note 3 Para (# of births) 1 EDC 06/03/25 Gestational Age In 26 Weeks & 2 Days Weeks & Days Patient Presented Nausea and vomiting with Complaint(s) of Appropriate for Yes Gestational Age RN Stephane RNC Date 02/27/25 Appropriate for Yes Gestational Age ABIGAIL Jorge RN Date 02/27/25 OB NST charge Yes Complete NST Note Yes via Write Note The provider's electronic signature indicates the NST is reactive/appropriate for gestational age. *Note to provider: If an addendum is required, open the patient's chart and click on the note under the Nurse/Allied Health tab.
== END 2025-02-27 13:12 | disposition home or self-care (01) ==
LOC: OB OUT 09:48 → OB 09:49
PROVIDERS: Visit Provider Obstetrics & Gynecology
DX: O21.2 Late vomiting of pregnancy (principal); Z3A.26 26 weeks gestation of pregnancy
CPT/HCPCS: 59025; G0463; A9270; J2405; J7120

== ENCOUNTER 2025-03-10 14:10 | Outpatient (CLI) | payer BC, SELFPAY | END 2025-03-10 14:11 | disposition home or self-care (01) | LOC: NFLDREF 03-14 08:09 | PROVIDERS: Visit Provider Obstetrics & Gynecology | DX: Z34.93 Encounter for supervision of normal pregnancy, unspecified, third trimester (principal) | CPT/HCPCS: 86780 ==